=== PATIENT | male | born 1960 | race African-American/Black ===

== ENCOUNTER 2016-12-31 21:40 | Inpatient (IN) | payer MEDICAID ==
[~2016-12-31] VITALS: Ht 188 cm; Wt 99.4 kg
[~2016-12-31 21:40] MED LIST: AML5T PO; ASPI-231 PO; ATOR80TA PO; IPRIH INH; LEVAAER4 IN; LISI-646 PO; MOME200A INH; TERA2CAP45 PO; TRIA37.577 PO
[2016-12-31 22:34] LABS: Basophils # (auto) 0 uL; Basophils % (auto) 0.4 % (0.0-2.0); Eosinophils # (auto) 0.2 uL; Eosinophils % (auto) 3.2 % (0.0-7.0); Hematocrit 42.1 % (41.0-53.0); Hemoglobin 13.2 g/dL (13.5-17.5); Lymphocytes # (auto) 1.3 uL; Lymphocytes % (auto) 22.7 % (10.0-50.0); Mean Corpuscular Hemoglobin 29.4 pg (28.0-32.0); Mean Corpuscular Hgb Conc. 31.5 g/dL (32.0-36.0); Mean Corpuscular Volume 93.5 fL (80.0-100.0); Mean Platelet Volume 11.8 fL (7.4-10.4); Monocytes # (auto) 0.5 uL; Monocytes % (auto) 8.6 % (0.0-12.0); Neutrophils # (auto) 3.7 uL; Neutrophils % (auto) 65.1 % (37.0-80.0); Platelet Count (auto) 138 10^3/uL (140-450); Red Cell Distribution Width 14.6 % (11.6-16.0); White Blood Cell 5.8 10^3/uL (4.4-10.8)
[2016-12-31 22:53] LABS: Partial Thromboplastin Time 26.4 sec (22.64-33.71)
[2016-12-31 23:00] LABS: INR 1.17 (0.9-1.15)
[2016-12-31 23:12] LABS: Albumin 3.3 g/dL (3.4-5.0); Calcium 8.7 mg/dL (8.5-10.1); Magnesium 2.4 mg/dL (1.6-2.6); Potassium 3.8 mmol/L (3.5-5.1)
[2016-12-31 23:14] LABS: Bilirubin, Total 0.7 mg/dL (0.2-1.0); Total Protein 6.7 g/dL (6.4-8.2)
[2016-12-31 23:21] LABS: B-Type Natriuretic Peptide 1286.66 pg/mL (0-100); Temperature: 22.4 C (20.0-25.0)
[2017-01-01] MEDS ORDERED: ENOXAPARIN SOD 100 MG/1 ML SYRINGE SC ONE (01:00)
[2017-01-01] MEDS ORDERED: ATORVASTATIN 20 MG TAB PO ONE (01:00)
[2017-01-01] MEDS ORDERED: FUROSEMIDE 20 MG/2 ML VIAL IV ONE (01:00)
[2017-01-01] MEDS ORDERED: ASPirin 81 mg TAB PO ONE (01:00)
[2017-01-01] MEDS ORDERED: NITROGLYCERIN 0.4 MG SL TAB SL ONE (01:00)
[2017-01-01] MEDS ORDERED: METOPROLOL TARTRATE 50 MG TAB PO ONE (03:45)
[2017-01-01] MEDS ORDERED: IOHEXOL 350 MG/ML 100ML IJ ONE (05:36)
[2017-01-01] MEDS ORDERED: MORPHINE SULF INJ 2 MG/ML SYRINGE 1ML IV PRN (05:45)
[2017-01-01] MEDS ORDERED: ONDANSETRON HCL 4 MG/2 ML VIAL IV PRN (05:45)
[2017-01-01] MEDS ORDERED: NITROGLYCERIN 0.4 MG SL TAB SL PRN (05:45)
[2017-01-01] MEDS ORDERED: ACETAMINOPHEN 325 MG TAB PO PRN (05:45)
[2017-01-01 09:05] VITALS: BP 140/94
[2017-01-01] MEDS: ASPirin 81 mg TAB PO SCH (10:13)
[2017-01-01] MEDS: CLOPIDOGREL BISULFATE 75 MG TAB PO SCH (10:14)
[2017-01-01] MEDS: CARVEDILOL 3.125 MG TAB PO SCH ×2 (10:14→21:30)
[2017-01-01] MEDS: FUROSEMIDE 40 MG TAB PO SCH (10:14)
[2017-01-01] MEDS: ENOXAPARIN SOD 40 MG/0.4 ML SYRINGE SC SCH (10:15)
[2017-01-01] MEDS: FAMOTIDINE 20 MG TAB PO SCH ×2 (10:15→21:30)
[2017-01-01] MEDS: RAMIPRIL 2.5 MG CAP PO SCH (10:19)
[2017-01-01] MEDS: DIGOXIN 0.25 MG TAB PO SCH (10:19)
[2017-01-01 10:30] VITALS: BP 160/101
[2017-01-01 13:00] VITALS: BP 156/111
[2017-01-01] MEDS: HYDROcodone-ACET 5/325MG TAB PO PRN ×3 (13:07→21:30)
[2017-01-01] MEDS ORDERED: PNEUMOCOCCAL VACC POLYS 25 MCG/0.5 ML VIAL IM ONE (16:45)
[2017-01-01] MEDS ORDERED: INFLUENZA QUAD 2016-2017 0.5 ML SYRG IM ONE (16:45)
[2017-01-01 17:02] VITALS: BP 143/103
[2017-01-01 20:00] VITALS: BP 140/99
[2017-01-01] MEDS: ATORVASTATIN 20 MG TAB PO SCH (21:34)
[2017-01-01 22:00] VITALS: BP 140/99
[2017-01-02] VITALS (7 sets, daily range): BP systolic 140–152; BP diastolic 92–106
[2017-01-02] MEDS: HYDROcodone-ACET 5/325MG TAB PO PRN ×3 (04:11→22:43)
[2017-01-02 06:33] LABS: Basophils # (auto) 0 uL; Basophils % (auto) 0.6 % (0.0-2.0); Eosinophils # (auto) 0.2 uL; Hematocrit 40.8 % (41.0-53.0); Hemoglobin 12.7 g/dL (13.5-17.5); Lymphocytes # (auto) 0.9 uL; Lymphocytes % (auto) 16.2 % (10.0-50.0); Mean Corpuscular Hemoglobin 29.2 pg (28.0-32.0); Mean Corpuscular Hgb Conc. 31.2 g/dL (32.0-36.0); Mean Corpuscular Volume 93.6 fL (80.0-100.0); Mean Platelet Volume 13.8 fL (7.4-10.4); Monocytes # (auto) 0.5 uL; Monocytes % (auto) 9.3 % (0.0-12.0); Neutrophils # (auto) 3.8 uL; Neutrophils % (auto) 70.9 % (37.0-80.0); Platelet Count (auto) 122 10^3/uL (140-450); Red Cell Distribution Width 14.5 % (11.6-16.0); SUSPECT VIEW TRANSMISSION; White Blood Cell 5.3 10^3/uL (4.4-10.8)
[2017-01-02 07:50] LABS: Large Platelets FEW; Platelet Estimate Decrea; RBC Morphology Normal
[2017-01-02 09:06] LABS: Albumin 3.1 g/dL (3.4-5.0); BUN/Creatinine Ratio 19.6; Bilirubin, Total 1.1 mg/dL (0.2-1.0); Calcium 8.6 mg/dL (8.5-10.1); Potassium 3.5 mmol/L (3.5-5.1); Total Protein 6.3 g/dL (6.4-8.2)
[2017-01-02] MEDS: CLOPIDOGREL BISULFATE 75 MG TAB PO SCH (09:16)
[2017-01-02] MEDS: FAMOTIDINE 20 MG TAB PO SCH ×2 (09:17→22:42)
[2017-01-02] MEDS: ENOXAPARIN SOD 40 MG/0.4 ML SYRINGE SC SCH (09:17)
[2017-01-02] MEDS: DIGOXIN 0.25 MG TAB PO SCH (09:20)
[2017-01-02] MEDS: RAMIPRIL 2.5 MG CAP PO SCH (09:20)
[2017-01-02] MEDS: ASPirin 81 mg TAB PO SCH (09:21)
[2017-01-02] MEDS: CARVEDILOL 3.125 MG TAB PO SCH ×2 (09:21→22:56)
[2017-01-02] MEDS: FUROSEMIDE 40 MG TAB PO SCH (09:21)
[2017-01-02] MEDS ORDERED: POTASSIUM CHL 20 Meq TABLET PO SCH (10:00)
[2017-01-02] MEDS: FUROSEMIDE 40 MG/4 ML VIAL IV SCH (17:43)
[2017-01-02] MEDS ORDERED: CARVEDILOL 3.125 MG TAB PO SCH (22:00)
[2017-01-02] MEDS: POTASSIUM CHL 20 Meq TABLET PO SCH (22:42)
[2017-01-02] MEDS: ATORVASTATIN 20 MG TAB PO SCH (22:42)
[2017-01-03 05:25] VITALS: BP 133/95
[2017-01-03] MEDS: FUROSEMIDE 40 MG/4 ML VIAL IV SCH ×2 (05:35→09:31)
[2017-01-03] MEDS: HYDROcodone-ACET 5/325MG TAB PO PRN (05:36)
[2017-01-03 08:00] VITALS: BP 135/100
[2017-01-03 08:08] LABS: BUN/Creatinine Ratio 13.8; Calcium 8.7 mg/dL (8.5-10.1); Potassium 3.5 mmol/L (3.5-5.1)
[2017-01-03 09:00] VITALS: BP 135/100
[2017-01-03] MEDS: POTASSIUM CHL 20 Meq TABLET PO SCH (09:31)
[2017-01-03] MEDS: CLOPIDOGREL BISULFATE 75 MG TAB PO SCH (09:31)
[2017-01-03] MEDS: CARVEDILOL 3.125 MG TAB PO SCH (09:32)
[2017-01-03] MEDS: DIGOXIN 0.25 MG TAB PO SCH (09:32)
[2017-01-03] MEDS: ASPirin 81 mg TAB PO SCH (09:32)
[2017-01-03 09:50] LABS: B-Type Natriuretic Peptide 860.91 pg/mL (0-100); Temperature: 22.4 C (20.0-25.0)
[2017-01-03] MEDS ORDERED: RAMIPRIL 2.5 MG CAP PO SCH (10:00)
[2017-01-03] MEDS: FAMOTIDINE 20 MG TAB PO SCH (10:08)
[2017-01-03 13:00] VITALS: BP 125/95
[2017-01-03 15:09] VITALS: BP 125/95
[2017-01-03 16:00] VITALS: BP 138/104
== END 2017-01-03 17:05 | disposition home or self-care (01) | DRG 190 ==
LOC: ER 21:43 → TELE 21:44 → TELE-WESTW 01-01 08:44 → TELE-E-ADS 01-01 10:07 → TELE-WESTW 01-01 10:33
PROVIDERS: ADMIT Nurse Practitioner; ATTEND Internal Medicine Pulmonary Disease
DX: I21.4 Non-ST elevation (NSTEMI) myocardial infarction (principal); I50.43 Acute on chronic combined systolic (congestive) and diastolic (congestive) heart failure; I11.0 Hypertensive heart disease with heart failure; I42.0 Dilated cardiomyopathy; I42.6 Alcoholic cardiomyopathy; E78.5 Hyperlipidemia, unspecified; E03.9 Hypothyroidism, unspecified; F10.20 Alcohol dependence, uncomplicated; J44.9 Chronic obstructive pulmonary disease, unspecified; Z82.49 Family history of ischemic heart disease and other diseases of the circulatory system; Z82.5 Family history of asthma and other chronic lower respiratory diseases; Z87.891 Personal history of nicotine dependence; Z79.899 Other long term (current) drug therapy; Z79.82 Long term (current) use of aspirin; Z80.1 Family history of malignant neoplasm of trachea, bronchus and lung; Z23 Encounter for immunization
CPT/HCPCS: 36415; 71020; 71275; 80048; 80053; 83735; 83880; 84439; 84443; 84481; 84484; 85025; 85379; 85610; 85730; 87081; 93005; 94761; 96372; 96374

== ENCOUNTER 2017-01-09 07:11 | Inpatient (IN) | payer MEDICAID ==
[~2017-01-09] VITALS: Ht 188 cm; Wt 94.8 kg
[2017-01-09] MEDS ORDERED: ASPirin 81 mg TAB PO ONE (07:45)
[2017-01-09 08:30] LABS: Basophils # (auto) 0 uL; Basophils % (auto) 0.4 % (0.0-2.0); Eosinophils # (auto) 0.1 uL; Hematocrit 40.3 % (41.0-53.0); Hemoglobin 12.9 g/dL (13.5-17.5); Lymphocytes # (auto) 1.3 uL; Lymphocytes % (auto) 25.1 % (10.0-50.0); Mean Corpuscular Hemoglobin 29.9 pg (28.0-32.0); Mean Corpuscular Volume 93.3 fL (80.0-100.0); Mean Platelet Volume 12.3 fL (7.4-10.4); Monocytes # (auto) 0.4 uL; Monocytes % (auto) 8.7 % (0.0-12.0); Neutrophils # (auto) 3.2 uL; Neutrophils % (auto) 63.8 % (37.0-80.0); Platelet Count (auto) 163 10^3/uL (140-450); Red Cell Distribution Width 14.1 % (11.6-16.0); SUSPECT VIEW TRANSMISSION; White Blood Cell 5.1 10^3/uL (4.4-10.8)
[2017-01-09 08:46] LABS: Albumin 3.4 g/dL (3.4-5.0); BUN/Creatinine Ratio 17.1; Calcium 8.5 mg/dL (8.5-10.1); Magnesium 2.4 mg/dL (1.6-2.6); Potassium 3.5 mmol/L (3.5-5.1)
[2017-01-09 08:49] LABS: Bilirubin, Total 0.6 mg/dL (0.2-1.0); Total Protein 6.5 g/dL (6.4-8.2)
[2017-01-09] MEDS ORDERED: ALUM & MAG HYDROX-SIMETH LIQ(MAALOX) 30 ML PO PRN (10:00)
[2017-01-09] MEDS ORDERED: cloNIDine HCL 0.1 MG TAB PO PRN (10:00)
[2017-01-09] MEDS ORDERED: FUROSEMIDE 40 MG/4 ML VIAL IV ONE (10:00)
[2017-01-09] MEDS ORDERED: NITROGLYCERIN 0.4 MG SL TAB SL PRN (10:00)
[2017-01-09] MEDS ORDERED: MORPHINE SULF INJ 2 MG/ML SYRINGE 1ML IV PRN (10:00)
[2017-01-09] MEDS ORDERED: PATIENTS OWN MEDICATION IN SCH ×2 (10:00)
[2017-01-09] MEDS ORDERED: ZOLPIDEM TARTRATE 5 MG TAB PO PRN (10:00)
[2017-01-09] MEDS ORDERED: ACETAMINOPHEN 325 MG TAB PO PRN (10:00)
[2017-01-09] MEDS: amLODIPine BESYLATE 5 MG TAB PO SCH (10:15)
[2017-01-09] MEDS: ENOXAPARIN SOD 100 MG/1 ML SYRINGE SC SCH ×2 (10:15→21:51)
[2017-01-09] MEDS: CLOPIDOGREL BISULFATE 75 MG TAB PO SCH (10:15)
[2017-01-09] MEDS: LISINOPRIL 10 MG TAB PO SCH (10:15)
[2017-01-09] MEDS: BUDESONIDE (INHALATION) 0.5 MG/2 ML NEB NEB SCH ×2 (10:23→19:13)
[2017-01-09] MEDS: ALBUTEROL SULF 2.5 MG/0.5ML(0.5%) NEB SOLN NEB SCH ×3 (10:23→23:52)
[2017-01-09] MEDS: IPRATROPIUM BROM 0.5 MG/2.5ML INH SOL NEB SCH ×3 (10:23→23:52)
[2017-01-09] MEDS: CARVEDILOL 3.125 MG TAB PO SCH ×2 (10:24→21:51)
[2017-01-09] MEDS: DOCUSATE SOD 100 MG CAP PO SCH (10:24)
[2017-01-09] MEDS: HCTZ 25 MG TAB PO SCH (10:25)
[2017-01-09 11:48] LABS: Urine RBC None Seen /hpf (0 - 3)
[2017-01-09 12:25] LABS: Urine Bilirubin Negative (Negative); Urine Blood Negative /uL (Negative); Urine Color Yellow (Yellow); Urine Glucose Normal (Normal); Urine Ketone Negative (Negative); Urine Mucus FEW (None Seen); Urine Nitrite Negative (Negative); Urine Squamous Epithelial Cell FEW /hpf (<5); Urine Urobilinogen Normal (Negative); Urine pH 5.5 (5.0-8.0)
[2017-01-09] MEDS: SODIUM CHLOR 0.9% PF (SALINE LOCK) 10ML VIAL IV SCH ×2 (14:18→22:12)
[2017-01-09 14:23] LABS: B-Type Natriuretic Peptide 1216.57 pg/mL (0-100); Temperature: 23.4 C (20.0-25.0)
[2017-01-09 16:40] VITALS: BP 141/105
[2017-01-09] MEDS: MORPHINE SULF INJ 2 MG/ML SYRINGE 1ML IV PRN ×2 (16:57→19:52)
[2017-01-09] MEDS: ONDANSETRON HCL 4 MG/2 ML VIAL IV PRN ×2 (16:58→18:03)
[2017-01-09] MEDS: LORazepam 0.5 MG TAB PO PRN (16:58)
[2017-01-09] MEDS: NITROGLYCERIN 0.4 MG SL TAB SL PRN ×3 (16:58→20:05)
[2017-01-09] MEDS: FUROSEMIDE 40 MG/4 ML VIAL IV SCH (18:03)
[2017-01-09] MEDS ORDERED: TERAZOSIN HCL 1 MG CAP ONE (21:42)
[2017-01-09] MEDS: ATORVASTATIN 20 MG TAB PO SCH (21:51)
[2017-01-09] MEDS: TERAZOSIN HCL 1 MG CAP PO SCH (21:51)
[2017-01-09 23:35] VITALS: BP 155/82
[2017-01-09 23:50] VITALS: BP 155/82
[2017-01-10 04:00] VITALS: BP 125/77
[2017-01-10] MEDS: FUROSEMIDE 40 MG/4 ML VIAL IV SCH ×2 (05:51→18:16)
[2017-01-10] MEDS: SODIUM CHLOR 0.9% PF (SALINE LOCK) 10ML VIAL IV SCH ×3 (05:51→21:45)
[2017-01-10] MEDS: ALBUTEROL SULF 2.5 MG/0.5ML(0.5%) NEB SOLN NEB SCH ×3 (06:34→18:43)
[2017-01-10] MEDS: IPRATROPIUM BROM 0.5 MG/2.5ML INH SOL NEB SCH ×3 (06:34→18:43)
[2017-01-10] MEDS: BUDESONIDE (INHALATION) 0.5 MG/2 ML NEB NEB SCH ×2 (06:35→18:43)
[2017-01-10 06:40] LABS: Basophils # (auto) 0 uL; Basophils % (auto) 0.6 % (0.0-2.0); Eosinophils # (auto) 0.1 uL; Eosinophils % (auto) 3.6 % (0.0-7.0); Hemoglobin 12.4 g/dL (13.5-17.5); Lymphocytes # (auto) 1.4 uL; Lymphocytes % (auto) 36.1 % (10.0-50.0); Mean Corpuscular Hemoglobin 29.4 pg (28.0-32.0); Mean Corpuscular Hgb Conc. 31.7 g/dL (32.0-36.0); Mean Corpuscular Volume 92.9 fL (80.0-100.0); Mean Platelet Volume 12.1 fL (7.4-10.4); Monocytes # (auto) 0.4 uL; Monocytes % (auto) 10.8 % (0.0-12.0); Neutrophils % (auto) 48.9 % (37.0-80.0); Platelet Count (auto) 141 10^3/uL (140-450); Red Cell Distribution Width 14.3 % (11.6-16.0); SUSPECT VIEW TRANSMISSION
[2017-01-10 07:54] VITALS: BP 136/94
[2017-01-10 07:59] LABS: Albumin 2.9 g/dL (3.4-5.0); BUN/Creatinine Ratio 17.7; Bilirubin, Total 0.8 mg/dL (0.2-1.0); Calcium 8.4 mg/dL (8.5-10.1); Magnesium 2.3 mg/dL (1.6-2.6); Potassium 3.1 mmol/L (3.5-5.1); Total Protein 5.9 g/dL (6.4-8.2)
[2017-01-10] MEDS: DOCUSATE SOD 100 MG CAP PO SCH (09:31)
[2017-01-10] MEDS: ASPirin 81 mg TAB PO SCH (09:54)
[2017-01-10] MEDS: CARVEDILOL 3.125 MG TAB PO SCH ×2 (09:54→21:42)
[2017-01-10] MEDS: CLOPIDOGREL BISULFATE 75 MG TAB PO SCH (09:55)
[2017-01-10] MEDS: amLODIPine BESYLATE 5 MG TAB PO SCH (09:55)
[2017-01-10] MEDS: HCTZ 25 MG TAB PO SCH (09:55)
[2017-01-10] MEDS: ENOXAPARIN SOD 100 MG/1 ML SYRINGE SC SCH (09:56)
[2017-01-10] MEDS: LISINOPRIL 10 MG TAB PO SCH (09:56)
[2017-01-10] MEDS ORDERED: SPIRONOLACTONE 25 MG TAB PO ONE (11:45)
[2017-01-10 11:58] VITALS: BP 127/91
[2017-01-10] MEDS ORDERED: POTASSIUM CHL 10 Meq TABLET PO ONE (12:00)
[2017-01-10] MEDS: BOOST PLUS 8 ounce PO SCH ×2 (12:00→18:16)
[2017-01-10 16:00] VITALS: BP 118/88
[2017-01-10 20:39] VITALS: BP 122/80
[2017-01-10] MEDS: ATORVASTATIN 20 MG TAB PO SCH (21:41)
[2017-01-10] MEDS: LORazepam 0.5 MG TAB PO PRN (21:41)
[2017-01-10] MEDS: TERAZOSIN HCL 1 MG CAP PO SCH (21:41)
[2017-01-11 00:08] VITALS: BP 116/76
[2017-01-11] MEDS: ALBUTEROL SULF 2.5 MG/0.5ML(0.5%) NEB SOLN NEB SCH ×4 (01:09→19:55)
[2017-01-11] MEDS: IPRATROPIUM BROM 0.5 MG/2.5ML INH SOL NEB SCH ×4 (01:09→19:55)
[2017-01-11 04:17] VITALS: BP 111/65
[2017-01-11] MEDS: SODIUM CHLOR 0.9% PF (SALINE LOCK) 10ML VIAL IV SCH ×3 (06:09→21:19)
[2017-01-11] MEDS: FUROSEMIDE 40 MG/4 ML VIAL IV SCH (06:09)
[2017-01-11 06:25] LABS: Basophils # (auto) 0 uL; Basophils % (auto) 0.5 % (0.0-2.0); Eosinophils # (auto) 0.2 uL; Eosinophils % (auto) 3.8 % (0.0-7.0); Hematocrit 41.9 % (41.0-53.0); Hemoglobin 13.5 g/dL (13.5-17.5); Lymphocytes # (auto) 1.2 uL; Lymphocytes % (auto) 27.4 % (10.0-50.0); Mean Corpuscular Hgb Conc. 32.3 g/dL (32.0-36.0); Mean Corpuscular Volume 92.8 fL (80.0-100.0); Mean Platelet Volume 11.8 fL (7.4-10.4); Monocytes # (auto) 0.3 uL; Neutrophils # (auto) 2.7 uL; Neutrophils % (auto) 61.3 % (37.0-80.0); Platelet Count (auto) 160 10^3/uL (140-450); Red Cell Distribution Width 14.3 % (11.6-16.0); White Blood Cell 4.4 10^3/uL (4.4-10.8)
[2017-01-11] MEDS: BUDESONIDE (INHALATION) 0.5 MG/2 ML NEB NEB SCH ×2 (06:57→19:56)
[2017-01-11 07:05] LABS: BUN/Creatinine Ratio 16.8; Calcium 8.2 mg/dL (8.5-10.1)
[2017-01-11 07:23] LABS: Bilirubin, Total 0.8 mg/dL (0.2-1.0)
[2017-01-11 07:39] LABS: Potassium 2.8 mmol/L (3.5-5.1)
[2017-01-11 08:00] VITALS: BP 134/59
[2017-01-11] MEDS: BOOST PLUS 8 ounce PO SCH ×3 (08:00→18:00)
[2017-01-11] MEDS: ASPirin 81 mg TAB PO SCH (09:38)
[2017-01-11] MEDS: CARVEDILOL 3.125 MG TAB PO SCH ×2 (09:38→21:12)
[2017-01-11] MEDS: DOCUSATE SOD 100 MG CAP PO SCH (09:38)
[2017-01-11] MEDS: SPIRONOLACTONE 25 MG TAB PO SCH (09:38)
[2017-01-11] MEDS: HCTZ 25 MG TAB PO SCH (09:38)
[2017-01-11] MEDS: CLOPIDOGREL BISULFATE 75 MG TAB PO SCH (09:39)
[2017-01-11] MEDS: LISINOPRIL 10 MG TAB PO SCH (09:39)
[2017-01-11] MEDS: amLODIPine BESYLATE 5 MG TAB PO SCH (09:39)
[2017-01-11] MEDS ORDERED: POTASSIUM CHL 20 Meq TABLET PO ONE ×2 (11:15→12:30)
[2017-01-11 12:00] VITALS: BP 112/75
[2017-01-11 17:00] VITALS: BP 120/88
[2017-01-11] MEDS: FUROSEMIDE 40 MG TAB PO SCH (18:27)
[2017-01-11] MEDS: ATORVASTATIN 20 MG TAB PO SCH (21:11)
[2017-01-11] MEDS: TERAZOSIN HCL 1 MG CAP PO SCH (21:12)
[2017-01-11] MEDS: POTASSIUM CHL 20 Meq TABLET PO SCH (21:19)
[2017-01-11 21:36] VITALS: BP 127/91
[2017-01-12] MEDS: ALBUTEROL SULF 2.5 MG/0.5ML(0.5%) NEB SOLN NEB SCH ×3 (01:25→11:54)
[2017-01-12] MEDS: IPRATROPIUM BROM 0.5 MG/2.5ML INH SOL NEB SCH ×3 (01:25→11:54)
[2017-01-12 05:19] VITALS: BP 117/84
[2017-01-12] MEDS: SODIUM CHLOR 0.9% PF (SALINE LOCK) 10ML VIAL IV SCH ×2 (05:43→14:00)
[2017-01-12] MEDS: BOOST PLUS 8 ounce PO SCH ×2 (05:43→12:00)
[2017-01-12] MEDS: FUROSEMIDE 40 MG TAB PO SCH (05:43)
[2017-01-12 06:49] LABS: BUN/Creatinine Ratio 19.5; Calcium 8.5 mg/dL (8.5-10.1); Potassium 3.7 mmol/L (3.5-5.1)
[2017-01-12 07:09] LABS: B-Type Natriuretic Peptide 247.2 pg/mL (0-100); Temperature: 22.2 C (20.0-25.0)
[2017-01-12] MEDS: BUDESONIDE (INHALATION) 0.5 MG/2 ML NEB NEB SCH (07:51)
[2017-01-12 08:32] VITALS: BP 118/89
[2017-01-12] MEDS: LISINOPRIL 10 MG TAB PO SCH ×2 (09:46→10:00)
[2017-01-12] MEDS: SPIRONOLACTONE 25 MG TAB PO SCH (09:46)
[2017-01-12] MEDS: DOCUSATE SOD 100 MG CAP PO SCH (09:46)
[2017-01-12] MEDS: CARVEDILOL 3.125 MG TAB PO SCH (09:47)
[2017-01-12] MEDS: POTASSIUM CHL 20 Meq TABLET PO SCH (09:47)
[2017-01-12] MEDS: LORazepam 0.5 MG TAB PO PRN (09:47)
[2017-01-12] MEDS ORDERED: POTA20TA53 PO (09:57)
[2017-01-12] MEDS ORDERED: CAR3125T PO (09:57)
[2017-01-12] MEDS ORDERED: LISI-646 PO (09:57)
[2017-01-12] MEDS ORDERED: SPIR25TA88 PO (09:57)
[2017-01-12] MEDS ORDERED: ASPI-231 PO (09:57)
[2017-01-12] MEDS ORDERED: FURO40TA4 PO (09:57)
[2017-01-12] MEDS ORDERED: ATOR80TA PO (09:57)
[2017-01-12 12:22] VITALS: BP 119/72
[2017-01-12] MEDS: ASPirin 81 mg TAB PO SCH (12:30)
[2017-01-12 14:16] VITALS: BP 119/72
== END 2017-01-12 16:30 | disposition home or self-care (01) | DRG 190 ==
LOC: ER 07:11 → TELE 07:12 → DOU IN ICU 23:34 → TELE-WESTW 01-11 14:52
PROVIDERS: ADMIT Internal Medicine; ATTEND Internal Medicine
DX: I21.4 Non-ST elevation (NSTEMI) myocardial infarction (principal); I50.43 Acute on chronic combined systolic (congestive) and diastolic (congestive) heart failure; E44.0 Moderate protein-calorie malnutrition; I42.0 Dilated cardiomyopathy; I42.6 Alcoholic cardiomyopathy; I13.0 Hypertensive heart and chronic kidney disease with heart failure and stage 1 through stage 4 chronic kidney disease, or unspecified chronic kidney disease; E87.6 Hypokalemia; J44.9 Chronic obstructive pulmonary disease, unspecified; E78.5 Hyperlipidemia, unspecified; I25.119 Atherosclerotic heart disease of native coronary artery with unspecified angina pectoris; D63.8 Anemia in other chronic diseases classified elsewhere; F10.10 Alcohol abuse, uncomplicated; N18.2 Chronic kidney disease, stage 2 (mild); J45.909 Unspecified asthma, uncomplicated; I25.2 Old myocardial infarction; Z87.891 Personal history of nicotine dependence; Z95.5 Presence of coronary angioplasty implant and graft; Z91.19 Patient's noncompliance with other medical treatment and regimen; Z82.49 Family history of ischemic heart disease and other diseases of the circulatory system; Z79.82 Long term (current) use of aspirin; Z79.899 Other long term (current) drug therapy; Z68.26 Body mass index [BMI] 26.0-26.9, adult
CPT/HCPCS: 36415; 71010; 78582; 80048; 80053; 80061; 81001; 83735; 83880; 84132; 84484; 85025; 85379; 87081; 87493; 93005; 93970; 94640; 96374; 97001; 99291; J2405

== ENCOUNTER 2017-01-18 14:05 | Inpatient (IN) | payer MEDICAID ==
[~2017-01-18] VITALS: Ht 188 cm; Wt 108.4 kg
[~2017-01-18 14:05] MED LIST changes: -AML5T PO; +CAR3125T PO; +FURO40TA4 PO; +POTA20TA53 PO; +SPIR25TA88 PO; -TRIA37.577 PO
[2017-01-18] MEDS ORDERED: MORPHINE SULF INJ 2 MG/ML SYRINGE 1ML IV ONE (15:00)
[2017-01-18] MEDS ORDERED: ASPirin 81 mg TAB PO ONE (15:00)
[2017-01-18] MEDS ORDERED: ONDANSETRON HCL 4 MG/2 ML VIAL IV ONE (15:00)
[2017-01-18 15:39] LABS: Albumin 3.5 g/dL (3.4-5.0); BUN/Creatinine Ratio 17.1; Calcium 8.3 mg/dL (8.5-10.1); Magnesium 2.5 mg/dL (1.6-2.6)
[2017-01-18] MEDS ORDERED: MORPHINE SULF INJ 2 MG/ML SYRINGE 1ML IV PRN (15:45)
[2017-01-18] MEDS ORDERED: ACETAMINOPHEN 500 MG TAB PO PRN (15:45)
[2017-01-18] MEDS ORDERED: NITROGLYCERIN 0.4 MG SL TAB SL PRN (15:45)
[2017-01-18] MEDS ORDERED: PROMETHAZINE HCL 25 MG/ML 1ML IV PRN (15:45)
[2017-01-18 15:47] LABS: Basophils # (auto) 0 uL; Basophils % (auto) 0.5 % (0.0-2.0); Eosinophils # (auto) 0.1 uL; Hematocrit 41.1 % (41.0-53.0); Hemoglobin 13.9 g/dL (13.5-17.5); Lymphocytes # (auto) 1.7 uL; Lymphocytes % (auto) 26.4 % (10.0-50.0); Mean Corpuscular Hgb Conc. 33.8 g/dL (32.0-36.0); Mean Corpuscular Volume 91.9 fL (80.0-100.0); Mean Platelet Volume 12.5 fL (7.4-10.4); Monocytes # (auto) 0.6 uL; Monocytes % (auto) 8.8 % (0.0-12.0); Neutrophils # (auto) 4.1 uL; Neutrophils % (auto) 63.3 % (37.0-80.0); Platelet Count (auto) 201 10^3/uL (140-450); Red Cell Distribution Width 14.3 % (11.6-16.0); SUSPECT VIEW TRANSMISSION; White Blood Cell 6.4 10^3/uL (4.4-10.8)
[2017-01-18 15:49] LABS: Partial Thromboplastin Time 25.4 sec (22.64-33.71); Prothrombin Time 11.9 sec (9.37-12.3)
[2017-01-18 15:53] LABS: INR 1.16 (0.9-1.15)
[2017-01-18] MEDS ORDERED: POTASSIUM CHL 20 Meq TABLET PO ONE (16:00)
[2017-01-18] MEDS ORDERED: ENALAPRIL MALEATE 2.5 MG TAB PO ONE (16:00)
[2017-01-18] MEDS ORDERED: CARVEDILOL 3.125 MG TAB PO ONE (16:00)
[2017-01-18] MEDS ORDERED: FUROSEMIDE 40 MG/4 ML VIAL IV ONE (16:00)
[2017-01-18 16:02] LABS: Bilirubin, Total 0.8 mg/dL (0.2-1.0)
[2017-01-18] MEDS: ENOXAPARIN SOD 40 MG/0.4 ML SYRINGE SC SCH (16:30)
[2017-01-18 16:32] LABS: B-Type Natriuretic Peptide 829.11 pg/mL (0-100); Temperature: 22.7 C (20.0-25.0)
[2017-01-18] MEDS ORDERED: SPIRONOLACTONE 25 MG TAB PO ONE (17:00)
[2017-01-18] MEDS ORDERED: DIGOXIN (250MCG/ML) 2 ML AMPULE IV ONE (17:15)
[2017-01-18] MEDS: NITROGLYCERIN 0.2MG/HR TOPICAL PATCH TD SCH (18:23)
[2017-01-18 18:57] LABS: Large Platelets FEW; Platelet Estimate Adequate; RBC Morphology Normal
[2017-01-18] MEDS ORDERED: CARVEDILOL 3.125 MG TAB PO SCH (22:00)
[2017-01-18] MEDS: SODIUM CHLOR 0.9% PF (SALINE LOCK) 10ML VIAL IV SCH (22:08)
[2017-01-18] MEDS: ENALAPRIL MALEATE 10 MG TAB PO SCH (22:11)
[2017-01-18] MEDS: ATORVASTATIN 20 MG TAB PO SCH (22:12)
[2017-01-18] MEDS: LORazepam 0.5 MG TAB PO PRN (23:30)
[2017-01-18] MEDS: TEMAZEPAM 15 MG CAP PO PRN (23:30)
[2017-01-18 23:32] VITALS: BP 122/83
[2017-01-19 00:26] VITALS: BP 122/83
[2017-01-19] MEDS: SPIRONOLACTONE 25 MG TAB PO SCH ×2 (05:03→17:29)
[2017-01-19] MEDS: SODIUM CHLOR 0.9% PF (SALINE LOCK) 10ML VIAL IV SCH ×3 (05:03→22:20)
[2017-01-19 08:00] VITALS: BP 118/80
[2017-01-19 08:46] LABS: B-Type Natriuretic Peptide 804.99 pg/mL (0-100); Temperature: 21.6 C (20.0-25.0)
[2017-01-19] MEDS ORDERED: FUROSEMIDE 40 MG/4 ML VIAL IV SCH (10:00)
[2017-01-19] MEDS ORDERED: ENALAPRIL MALEATE 2.5 MG TAB PO SCH (10:00)
[2017-01-19] MEDS: ASPirin 81 mg TAB PO SCH (10:28)
[2017-01-19] MEDS: ENOXAPARIN SOD 40 MG/0.4 ML SYRINGE SC SCH (10:29)
[2017-01-19] MEDS: ENALAPRIL MALEATE 10 MG TAB PO SCH ×2 (10:29→22:20)
[2017-01-19] MEDS: NITROGLYCERIN 0.2MG/HR TOPICAL PATCH TD SCH (10:30)
[2017-01-19] MEDS: POTASSIUM CHL 20 Meq TABLET PO SCH (10:30)
[2017-01-19] MEDS ORDERED: DIGOXIN 0.25 MG TAB PO ONE (11:45)
[2017-01-19 12:40] LABS: Albumin 3.2 g/dL (3.4-5.0); BUN/Creatinine Ratio 15.6; Bilirubin, Total 0.9 mg/dL (0.2-1.0); Calcium 8.6 mg/dL (8.5-10.1); Total Protein 6.6 g/dL (6.4-8.2)
[2017-01-19 12:51] VITALS: BP 128/85
[2017-01-19 13:01] LABS: Partial Thromboplastin Time 26.8 sec (22.64-33.71)
[2017-01-19 13:06] LABS: INR 1.17 (0.9-1.15)
[2017-01-19 16:00] VITALS: BP 135/93
[2017-01-19] MEDS ORDERED: WARFARIN SODIUM 2.5 MG TAB PO ONE (17:00)
[2017-01-19 21:51] VITALS: BP 137/93
[2017-01-19] MEDS: ATORVASTATIN 20 MG TAB PO SCH (22:20)
[2017-01-19] MEDS: TEMAZEPAM 15 MG CAP PO PRN (22:20)
[2017-01-20 04:37] VITALS: BP 139/85
[2017-01-20] MEDS: SPIRONOLACTONE 25 MG TAB PO SCH ×2 (05:51→09:57)
[2017-01-20] MEDS: SODIUM CHLOR 0.9% PF (SALINE LOCK) 10ML VIAL IV SCH ×3 (06:00→21:20)
[2017-01-20 06:09] LABS: Partial Thromboplastin Time 26.7 sec (22.64-33.71); Prothrombin Time 12.1 sec (9.37-12.3)
[2017-01-20 06:16] LABS: Potassium 3.7 mmol/L (3.5-5.1)
[2017-01-20 06:20] LABS: INR 1.17 (0.9-1.15)
[2017-01-20 06:27] LABS: BUN/Creatinine Ratio 15.2; Bilirubin, Total 0.7 mg/dL (0.2-1.0); Calcium 8.2 mg/dL (8.5-10.1); Total Protein 6.1 g/dL (6.4-8.2)
[2017-01-20 09:29] VITALS: BP 147/97
[2017-01-20] MEDS: HYDROcodone-ACET 5/325MG TAB PO PRN ×2 (09:42→21:08)
[2017-01-20] MEDS: POTASSIUM CHL 20 Meq TABLET PO SCH (09:42)
[2017-01-20] MEDS: NITROGLYCERIN 0.2MG/HR TOPICAL PATCH TD SCH (09:43)
[2017-01-20] MEDS: ASPirin 81 mg TAB PO SCH (09:43)
[2017-01-20] MEDS: ENOXAPARIN SOD 40 MG/0.4 ML SYRINGE SC SCH (09:44)
[2017-01-20] MEDS: ENALAPRIL MALEATE 10 MG TAB PO SCH ×2 (09:44→21:11)
[2017-01-20] MEDS: CARVEDILOL 3.125 MG TAB PO SCH ×2 (09:57→21:10)
[2017-01-20] MEDS ORDERED: DIGOXIN 0.25 MG TAB PO SCH (10:00)
[2017-01-20] MEDS ORDERED: FUROSEMIDE 20 MG TAB PO SCH (10:00)
[2017-01-20 13:00] VITALS: BP 145/71
[2017-01-20 16:57] VITALS: BP 124/89
[2017-01-20] MEDS ORDERED: WARFARIN SODIUM 10 MG TAB PO ONE (17:00)
[2017-01-20] MEDS: ATORVASTATIN 20 MG TAB PO SCH (21:07)
[2017-01-20] MEDS: TEMAZEPAM 15 MG CAP PO PRN (21:11)
[2017-01-20 22:00] VITALS: BP 141/89
[2017-01-21] VITALS (7 sets, daily range): BP systolic 137–155; BP diastolic 82–98
[2017-01-21 06:20] LABS: Partial Thromboplastin Time 27.3 sec (22.64-33.71)
[2017-01-21] MEDS: SODIUM CHLOR 0.9% PF (SALINE LOCK) 10ML VIAL IV SCH ×3 (06:25→21:33)
[2017-01-21 06:26] LABS: BUN/Creatinine Ratio 16.4; Calcium 8.3 mg/dL (8.5-10.1); Potassium 3.9 mmol/L (3.5-5.1)
[2017-01-21 06:33] LABS: INR 1.32 (0.9-1.15); Prothrombin Time 13.6 sec (9.37-12.3)
[2017-01-21] MEDS ORDERED: DIGO0.2566 PO (06:51)
[2017-01-21] MEDS: DIGOXIN 0.25 MG TAB PO SCH (11:18)
[2017-01-21] MEDS: CARVEDILOL 3.125 MG TAB PO SCH ×2 (11:19→21:32)
[2017-01-21] MEDS: ASPirin 81 mg TAB PO SCH (11:20)
[2017-01-21] MEDS: ENALAPRIL MALEATE 10 MG TAB PO SCH ×2 (11:20→21:33)
[2017-01-21] MEDS: SPIRONOLACTONE 25 MG TAB PO SCH (11:20)
[2017-01-21] MEDS: ENOXAPARIN SOD 40 MG/0.4 ML SYRINGE SC SCH (11:21)
[2017-01-21] MEDS ORDERED: ALBUTEROL SULF 2.5 MG/0.5ML(0.5%) NEB SOLN NEB PRN (16:00)
[2017-01-21] MEDS ORDERED: IPRATROPIUM BROM 0.5 MG/2.5ML INH SOL NEB ONE (16:00)
[2017-01-21] MEDS ORDERED: ALBUTEROL SULF 2.5 MG/0.5ML(0.5%) NEB SOLN NEB ONE (16:00)
[2017-01-21] MEDS ORDERED: IPRATROPIUM BROM 0.5 MG/2.5ML INH SOL NEB PRN (16:00)
[2017-01-21] MEDS ORDERED: WARFARIN SODIUM 2.5 MG TAB PO ONE (17:00)
[2017-01-21] MEDS: LORazepam 0.5 MG TAB PO PRN (17:30)
[2017-01-21] MEDS: ATORVASTATIN 20 MG TAB PO SCH (21:32)
[2017-01-21] MEDS: MORPHINE SULF INJ 2 MG/ML SYRINGE 1ML IV PRN (21:34)
[2017-01-21] MEDS: TEMAZEPAM 15 MG CAP PO PRN (23:02)
[2017-01-22 01:52] VITALS: BP 149/112
[2017-01-22 06:25] LABS: Partial Thromboplastin Time 29.6 sec (22.64-33.71)
[2017-01-22 06:27] LABS: INR 2.21 (0.9-1.15); Prothrombin Time 22.8 sec (9.37-12.3)
[2017-01-22 06:36] LABS: BUN/Creatinine Ratio 18.9; Calcium 8.8 mg/dL (8.5-10.1); Potassium 4.2 mmol/L (3.5-5.1)
[2017-01-22] MEDS: MORPHINE SULF INJ 2 MG/ML SYRINGE 1ML IV PRN (06:51)
[2017-01-22] MEDS: SODIUM CHLOR 0.9% PF (SALINE LOCK) 10ML VIAL IV SCH ×3 (06:51→21:37)
[2017-01-22 08:06] VITALS: BP 140/93
[2017-01-22] MEDS ORDERED: FUROSEMIDE 40 MG TAB PO SCH (10:00)
[2017-01-22] MEDS: ASPirin 81 mg TAB PO SCH (10:34)
[2017-01-22] MEDS: SPIRONOLACTONE 25 MG TAB PO SCH (10:34)
[2017-01-22] MEDS: ENALAPRIL MALEATE 10 MG TAB PO SCH ×2 (10:35→21:35)
[2017-01-22] MEDS: CARVEDILOL 3.125 MG TAB PO SCH ×2 (10:35→21:36)
[2017-01-22] MEDS: DIGOXIN 0.25 MG TAB PO SCH (10:37)
[2017-01-22 10:59] LABS: B-Type Natriuretic Peptide 810.35 pg/mL (0-100); Temperature: 21.5 C (20.0-25.0)
[2017-01-22] MEDS ORDERED: METOLAZONE 5 MG TAB PO ONE (11:30)
[2017-01-22] MEDS ORDERED: POTASSIUM CHL 20 Meq TABLET PO ONE (11:30)
[2017-01-22 12:51] VITALS: BP 156/98
[2017-01-22] MEDS ORDERED: WARFARIN SODIUM 1 MG TAB PO ONE (17:00)
[2017-01-22 17:54] VITALS: BP 149/100
[2017-01-22 21:31] VITALS: BP 151/83
[2017-01-22] MEDS: ATORVASTATIN 20 MG TAB PO SCH (21:34)
[2017-01-22] MEDS: TEMAZEPAM 15 MG CAP PO PRN (21:44)
[2017-01-23 05:09] VITALS: BP 154/98
[2017-01-23 05:54] LABS: Partial Thromboplastin Time 29.9 sec (22.64-33.71)
[2017-01-23 05:59] LABS: INR 2.5 (0.9-1.15); Prothrombin Time 25.7 sec (9.37-12.3)
[2017-01-23 06:12] LABS: BUN/Creatinine Ratio 18.2; Calcium 8.8 mg/dL (8.5-10.1); Potassium 3.7 mmol/L (3.5-5.1)
[2017-01-23] MEDS: SODIUM CHLOR 0.9% PF (SALINE LOCK) 10ML VIAL IV SCH ×2 (06:31→14:00)
[2017-01-23 08:00] VITALS: BP 145/98
[2017-01-23 08:39] VITALS: BP 145/109
[2017-01-23] MEDS ORDERED: METOLAZONE 5 MG TAB PO SCH (10:00)
[2017-01-23] MEDS ORDERED: WARF1TAB PO (10:10)
[2017-01-23] MEDS ORDERED: POTASSIUM CHL 10 Meq TABLET PO ONE (10:15)
[2017-01-23] MEDS: SPIRONOLACTONE 25 MG TAB PO SCH (10:43)
[2017-01-23] MEDS: CARVEDILOL 3.125 MG TAB PO SCH (10:44)
[2017-01-23] MEDS: DIGOXIN 0.25 MG TAB PO SCH (10:45)
[2017-01-23] MEDS: ASPirin 81 mg TAB PO SCH (10:45)
[2017-01-23 13:00] VITALS: BP 145/98
[2017-01-23] MEDS ORDERED: METO5TAB56 PO (14:03)
[2017-01-23] MEDS ORDERED: WARFARIN SODIUM 1 MG TAB PO ONE (17:00)
[2017-01-23] MEDS ORDERED: ENALAPRIL MALEATE 2.5 MG TAB PO SCH (22:00)
== END 2017-01-23 16:15 | disposition home or self-care (01) | DRG 201 ==
LOC: ER 14:08 → TELE 14:09 → DOU IN ICU 23:13 → TELE-CENTR 01-19 13:26
PROVIDERS: ADMIT Internal Medicine; ATTEND Internal Medicine
DX: I48.91 Unspecified atrial fibrillation (principal); I50.43 Acute on chronic combined systolic (congestive) and diastolic (congestive) heart failure; D68.69 Other thrombophilia; I42.0 Dilated cardiomyopathy; J44.9 Chronic obstructive pulmonary disease, unspecified; I42.6 Alcoholic cardiomyopathy; I11.0 Hypertensive heart disease with heart failure; I48.92 Unspecified atrial flutter; E78.5 Hyperlipidemia, unspecified; I25.2 Old myocardial infarction; Z87.891 Personal history of nicotine dependence; Z82.49 Family history of ischemic heart disease and other diseases of the circulatory system; Z80.1 Family history of malignant neoplasm of trachea, bronchus and lung; Z82.5 Family history of asthma and other chronic lower respiratory diseases
CPT/HCPCS: 36415; 71010; 71020; 80048; 80053; 80162; 82550; 83735; 83880; 84484; 85025; 85610; 85652; 85730; 86141; 87081; 87493; 93005; 94640; 96374; 96375; G0434; J2405

== ENCOUNTER 2017-02-07 16:19 | Inpatient (IN) | payer SELFPAY ==
[~2017-02-07] VITALS: Ht 188 cm; Wt 99.0 kg
[~2017-02-07 16:19] MED LIST changes: +DIGO0.2566 PO; +METO5TAB56 PO; +WARF1TAB PO
[2017-02-07 17:28] LABS: Basophils # (auto) 0 uL; Basophils % (auto) 0.3 % (0.0-2.0); Eosinophils # (auto) 0 uL; Eosinophils % (auto) 0.7 % (0.0-7.0); Hematocrit 42.7 % (41.0-53.0); Hemoglobin 14.2 g/dL (13.5-17.5); Lymphocytes % (auto) 18.6 % (10.0-50.0); Mean Corpuscular Hemoglobin 30.6 pg (28.0-32.0); Mean Corpuscular Hgb Conc. 33.3 g/dL (32.0-36.0); Mean Corpuscular Volume 91.9 fL (80.0-100.0); Mean Platelet Volume 10.6 fL (7.4-10.4); Monocytes # (auto) 0.5 uL; Monocytes % (auto) 8.7 % (0.0-12.0); Neutrophils # (auto) 3.9 uL; Neutrophils % (auto) 71.7 % (37.0-80.0); Platelet Count (auto) 170 10^3/uL (140-450); Red Cell Distribution Width 13.5 % (11.6-16.0); White Blood Cell 5.4 10^3/uL (4.4-10.8)
[2017-02-07 17:44] LABS: Albumin 3.5 g/dL (3.4-5.0); BUN/Creatinine Ratio 12.9; Calcium 8.2 mg/dL (8.5-10.1); Magnesium 2.5 mg/dL (1.6-2.6); Potassium 3.3 mmol/L (3.5-5.1)
[2017-02-07] MEDS ORDERED: SODIUM CHLORIDE 0.9% 1,000 ML IV ONE (17:45)
[2017-02-07 17:49] LABS: B-Type Natriuretic Peptide 77.61 pg/mL (0-100); INR 1.13 (0.9-1.15); Partial Thromboplastin Time 25.2 sec (22.64-33.71); Prothrombin Time 11.6 sec (9.37-12.3)
[2017-02-07 18:00] LABS: Bilirubin, Total 1.3 mg/dL (0.2-1.0); Total Protein 6.8 g/dL (6.4-8.2)
[2017-02-07 18:03] LABS: Temperature: 23.9 C (20.0-25.0)
[2017-02-07] MEDS ORDERED: ASPirin 81 mg TAB PO ONE (18:15)
[2017-02-07] MEDS ORDERED: ONDANSETRON HCL 4 MG/2 ML VIAL IV ONE (18:45)
[2017-02-07] MEDS ORDERED: MORPHINE SULF INJ 2 MG/ML SYRINGE 1ML IV ONE (18:45)
[2017-02-07] MEDS ORDERED: PROMETHAZINE HCL 25 MG/ML 1ML IV PRN (19:15)
[2017-02-07] MEDS ORDERED: ACETAMINOPHEN 500 MG TAB PO PRN (19:15)
[2017-02-07] MEDS ORDERED: MORPHINE SULF INJ 2 MG/ML SYRINGE 1ML IV PRN ×2 (19:15)
[2017-02-07] MEDS ORDERED: LACTULOSE 20Gm/30ML SOLN PO PRN (19:15)
[2017-02-07] MEDS ORDERED: LORazepam 0.5 MG TAB PO PRN (19:15)
[2017-02-07] MEDS ORDERED: TEMAZEPAM 15 MG CAP PO PRN (19:15)
[2017-02-07 21:00] VITALS: BP 110/72
[2017-02-07] MEDS: SODIUM CHLOR 0.9% PF (SALINE LOCK) 10ML VIAL IV SCH (21:29)
[2017-02-07] MEDS: CARVEDILOL 3.125 MG TAB PO SCH (21:30)
[2017-02-07] MEDS: HYDROcodone-ACET 5/325MG TAB PO PRN (21:31)
[2017-02-07] MEDS: ATORVASTATIN 20 MG TAB PO SCH (21:31)
[2017-02-07] MEDS ORDERED: IPRATROPIUM BROMIDE INH SCH (22:00)
[2017-02-07] MEDS ORDERED: FORMOTEROL INH SCH (22:00)
[2017-02-07] MEDS ORDERED: [UNRECOGNIZED DRUG - OTHER] INH SCH (22:00)
[2017-02-07] MEDS: LEVALBUTEROL HCL 1.25 MG/3 ML NEB IN SCH (22:10)
[2017-02-07] MEDS: IPRATROPIUM BROM 0.5 MG/2.5ML INH SOL NEB SCH (22:10)
[2017-02-07] MEDS: BUDESONIDE (INHALATION) 0.5 MG/2 ML NEB NEB SCH (22:10)
[2017-02-07 22:19] VITALS: BP 105/67
[2017-02-08 04:00] VITALS: BP 86/59
[2017-02-08 04:15] VITALS: BP 93/64
[2017-02-08] MEDS: SODIUM CHLOR 0.9% PF (SALINE LOCK) 10ML VIAL IV SCH (05:32)
[2017-02-08] MEDS: IPRATROPIUM BROM 0.5 MG/2.5ML INH SOL NEB SCH ×3 (06:02→22:01)
[2017-02-08] MEDS: BUDESONIDE (INHALATION) 0.5 MG/2 ML NEB NEB SCH ×2 (06:02→22:01)
[2017-02-08] MEDS: LEVALBUTEROL HCL 1.25 MG/3 ML NEB IN SCH ×3 (06:02→22:01)
[2017-02-08 06:28] LABS: Basophils # (auto) 0 uL; Basophils % (auto) 0.4 % (0.0-2.0); Eosinophils # (auto) 0.1 uL; Eosinophils % (auto) 2.1 % (0.0-7.0); Hematocrit 41.1 % (41.0-53.0); Hemoglobin 13.5 g/dL (13.5-17.5); Lymphocytes # (auto) 1.8 uL; Lymphocytes % (auto) 29.8 % (10.0-50.0); Mean Corpuscular Hemoglobin 30.3 pg (28.0-32.0); Mean Corpuscular Hgb Conc. 32.7 g/dL (32.0-36.0); Mean Corpuscular Volume 92.6 fL (80.0-100.0); Monocytes # (auto) 0.6 uL; Monocytes % (auto) 9.7 % (0.0-12.0); Neutrophils # (auto) 3.6 uL; Platelet Count (auto) 147 10^3/uL (140-450); White Blood Cell 6.1 10^3/uL (4.4-10.8)
[2017-02-08 07:11] LABS: Albumin 2.9 g/dL (3.4-5.0); BUN/Creatinine Ratio 19.1; Bilirubin, Total 0.9 mg/dL (0.2-1.0); Calcium 7.8 mg/dL (8.5-10.1); Potassium 3.2 mmol/L (3.5-5.1); Total Protein 6.2 g/dL (6.4-8.2)
[2017-02-08 07:48] VITALS: BP 93/64
[2017-02-08] MEDS: DIGOXIN 0.25 MG TAB PO SCH (09:09)
[2017-02-08] MEDS: ASPirin 81 mg TAB PO SCH (09:09)
[2017-02-08] MEDS: PANTOPRAZOLE 40 MG TAB PO SCH (09:09)
[2017-02-08] MEDS: HYDROcodone-ACET 5/325MG TAB PO PRN ×2 (09:10→15:48)
[2017-02-08] MEDS: CARVEDILOL 3.125 MG TAB PO SCH ×2 (09:13→21:31)
[2017-02-08] MEDS ORDERED: ENOXAPARIN SOD 40 MG/0.4 ML SYRINGE SC SCH (10:00)
[2017-02-08 11:44] VITALS: BP 114/76
[2017-02-08 15:55] VITALS: BP 118/70
[2017-02-08] MEDS: NITROGLYCERIN 0.4 MG SL TAB SL PRN ×2 (17:33→17:41)
[2017-02-08] MEDS ORDERED: POTASSIUM CHL 20 Meq TABLET PO ONE ×2 (18:15→22:00)
[2017-02-08] MEDS: FUROSEMIDE 40 MG TAB PO SCH (18:42)
[2017-02-08 20:00] VITALS: BP 110/65
[2017-02-08] MEDS: ATORVASTATIN 20 MG TAB PO SCH (21:32)
[2017-02-08] MEDS: APIXABAN 2.5 MG TAB PO SCH (21:32)
[2017-02-08] MEDS: POTASSIUM CHL 20 Meq TABLET PO SCH (21:32)
[2017-02-09] VITALS (7 sets, daily range): BP systolic 121–148; BP diastolic 71–96
[2017-02-09] MEDS: FUROSEMIDE 40 MG TAB PO SCH ×2 (05:38→17:35)
[2017-02-09] MEDS: IPRATROPIUM BROM 0.5 MG/2.5ML INH SOL NEB SCH ×3 (06:21→22:00)
[2017-02-09] MEDS: BUDESONIDE (INHALATION) 0.5 MG/2 ML NEB NEB SCH (06:21)
[2017-02-09] MEDS: LEVALBUTEROL HCL 1.25 MG/3 ML NEB IN SCH ×3 (06:21→22:00)
[2017-02-09 06:37] LABS: BUN/Creatinine Ratio 22.5; Calcium 8.4 mg/dL (8.5-10.1); Potassium 3.5 mmol/L (3.5-5.1)
[2017-02-09] MEDS: PANTOPRAZOLE 40 MG TAB PO SCH (10:05)
[2017-02-09] MEDS: APIXABAN 2.5 MG TAB PO SCH ×2 (10:05→21:08)
[2017-02-09] MEDS: POTASSIUM CHL 20 Meq TABLET PO SCH ×2 (10:05→21:08)
[2017-02-09] MEDS: ASPirin 81 mg TAB PO SCH (10:05)
[2017-02-09] MEDS: METOLAZONE 5 MG TAB PO SCH (10:06)
[2017-02-09] MEDS: DIGOXIN 0.25 MG TAB PO SCH (10:08)
[2017-02-09] MEDS: CARVEDILOL 3.125 MG TAB PO SCH (10:09)
[2017-02-09] MEDS: CARVEDILOL 12.5 MG TAB PO SCH (21:07)
[2017-02-09] MEDS: ATORVASTATIN 20 MG TAB PO SCH (21:09)
[2017-02-10] VITALS (7 sets, daily range): BP systolic 128–146; BP diastolic 82–103
[2017-02-10] MEDS: FUROSEMIDE 40 MG TAB PO SCH ×2 (06:00→18:08)
[2017-02-10 07:04] LABS: BUN/Creatinine Ratio 20.7; Calcium 8.8 mg/dL (8.5-10.1)
[2017-02-10 07:18] LABS: B-Type Natriuretic Peptide 566.89 pg/mL (0-100); Temperature: 21.4 C (20.0-25.0)
[2017-02-10] MEDS: LEVALBUTEROL HCL 1.25 MG/3 ML NEB IN SCH ×3 (07:40→21:30)
[2017-02-10] MEDS: IPRATROPIUM BROM 0.5 MG/2.5ML INH SOL NEB SCH ×3 (07:41→21:30)
[2017-02-10] MEDS: ASPirin 81 mg TAB PO SCH (10:02)
[2017-02-10] MEDS: CARVEDILOL 12.5 MG TAB PO SCH ×2 (10:02→22:47)
[2017-02-10] MEDS: POTASSIUM CHL 20 Meq TABLET PO SCH ×3 (10:03→22:48)
[2017-02-10] MEDS: APIXABAN 2.5 MG TAB PO SCH ×2 (10:03→22:46)
[2017-02-10] MEDS: METOLAZONE 5 MG TAB PO SCH (10:04)
[2017-02-10] MEDS: PANTOPRAZOLE 40 MG TAB PO SCH (10:04)
[2017-02-10] MEDS: DIGOXIN 0.25 MG TAB PO SCH (10:04)
[2017-02-10] MEDS: HYDROcodone-ACET 5/325MG TAB PO PRN ×2 (10:12→20:15)
[2017-02-10] MEDS ORDERED: POTASSIUM CHL 20 Meq TABLET PO ONE (11:15)
[2017-02-10] MEDS: ATORVASTATIN 20 MG TAB PO SCH (22:46)
[2017-02-11] VITALS (7 sets, daily range): BP systolic 105–123; BP diastolic 52–82
[2017-02-11] MEDS: IPRATROPIUM BROM 0.5 MG/2.5ML INH SOL NEB SCH ×2 (05:58→13:20)
[2017-02-11] MEDS: LEVALBUTEROL HCL 1.25 MG/3 ML NEB IN SCH ×3 (05:58→18:58)
[2017-02-11] MEDS: POTASSIUM CHL 20 Meq TABLET PO SCH ×2 (06:34→13:44)
[2017-02-11] MEDS: FUROSEMIDE 40 MG TAB PO SCH ×2 (06:34→17:58)
[2017-02-11 06:36] LABS: B-Type Natriuretic Peptide 331.75 pg/mL (0-100)
[2017-02-11] MEDS: APIXABAN 2.5 MG TAB PO SCH (09:20)
[2017-02-11] MEDS: CARVEDILOL 12.5 MG TAB PO SCH (09:20)
[2017-02-11] MEDS: PANTOPRAZOLE 40 MG TAB PO SCH (09:20)
[2017-02-11] MEDS: METOLAZONE 5 MG TAB PO SCH (09:21)
[2017-02-11] MEDS: DIGOXIN 0.25 MG TAB PO SCH (09:21)
[2017-02-11] MEDS ORDERED: POTA20TA53 PO (16:31)
== END 2017-02-11 19:20 | disposition home or self-care (01) | DRG 281 ==
LOC: EDBD 16:19 → ER 16:23 → TELE 16:24 → DOU IN ICU 21:00 → TELE-CENTR 02-10 01:52
PROVIDERS: ADMIT Internal Medicine; ATTEND Internal Medicine Pulmonary Disease
DX: I21.4 Non-ST elevation (NSTEMI) myocardial infarction (principal); I48.4 Atypical atrial flutter; E87.0 Hyperosmolality and hypernatremia; I13.0 Hypertensive heart and chronic kidney disease with heart failure and stage 1 through stage 4 chronic kidney disease, or unspecified chronic kidney disease; J44.9 Chronic obstructive pulmonary disease, unspecified; I50.9 Heart failure, unspecified; I48.91 Unspecified atrial fibrillation; E87.6 Hypokalemia; E78.5 Hyperlipidemia, unspecified; I67.2 Cerebral atherosclerosis; N18.3 Chronic kidney disease, stage 3 (moderate); I25.5 Ischemic cardiomyopathy; Z82.49 Family history of ischemic heart disease and other diseases of the circulatory system; Z87.891 Personal history of nicotine dependence; Z82.5 Family history of asthma and other chronic lower respiratory diseases; I25.2 Old myocardial infarction; Z80.1 Family history of malignant neoplasm of trachea, bronchus and lung
CPT/HCPCS: 36415; 70450; 71010; 80048; 80053; 80061; 80162; 82550; 82962; 83735; 83880; 84132; 84439; 84443; 84484; 85025; 85610; 85652; 85730; 86141; 87081; 93005; 94640; 96361; 96374; 96375; J2405

== ENCOUNTER 2017-03-14 00:42 | Inpatient (IN) | payer MEDICAID ==
[~2017-03-14] VITALS: Ht 188 cm; Wt 122.6 kg
[2017-03-14] VITALS (21 sets, daily range): BP systolic 125–159; BP diastolic 48–106
[2017-03-14 01:11] LABS: Basophils # (auto) 0.2 uL; Basophils % (auto) 3.6 % (0.0-2.0); DEFINITIVE VIEW TRANSMISSION; Eosinophils # (auto) 0.1 uL; Eosinophils % (auto) 1.6 % (0.0-7.0); Hematocrit 39.3 % (41.0-53.0); Hemoglobin 12.9 g/dL (13.5-17.5); Lymphocytes # (auto) 1.3 uL; Lymphocytes % (auto) 18.4 % (10.0-50.0); Mean Corpuscular Hemoglobin 29.9 pg (28.0-32.0); Mean Corpuscular Hgb Conc. 32.7 g/dL (32.0-36.0); Mean Corpuscular Volume 91.6 fL (80.0-100.0); Mean Platelet Volume 10.6 fL (7.4-10.4); Monocytes # (auto) 0.4 uL; Monocytes % (auto) 5.6 % (0.0-12.0); Neutrophils # (auto) 4.8 uL; Neutrophils % (auto) 70.8 % (37.0-80.0); Platelet Count (auto) 133 10^3/uL (140-450); Red Cell Distribution Width 13.7 % (11.6-16.0); White Blood Cell 6.9 10^3/uL (4.4-10.8)
[2017-03-14 01:26] LABS: Partial Thromboplastin Time 27.3 sec (22.64-33.71)
[2017-03-14 01:27] LABS: INR 1.18 (0.9-1.15); Prothrombin Time 12.7 sec (9.37-12.3)
[2017-03-14 01:39] LABS: Temperature: 21.1 C (20.0-25.0)
[2017-03-14 01:47] LABS: Albumin 3.2 g/dL (3.4-5.0); BUN/Creatinine Ratio 9.1; Bilirubin, Total 1.2 mg/dL (0.2-1.0); Calcium 8.2 mg/dL (8.5-10.1); Magnesium 2.1 mg/dL (1.6-2.6); Total Protein 6.9 g/dL (6.4-8.2)
[2017-03-14] MEDS ORDERED: ASPirin 81 mg TAB PO ONE (02:15)
[2017-03-14] MEDS ORDERED: NITROGLYCERIN 0.4 MG SL TAB SL ONE (02:15)
[2017-03-14] MEDS ORDERED: ONDANSETRON HCL 4 MG/2 ML VIAL IV ONE (02:15)
[2017-03-14] MEDS ORDERED: MORPHINE SULFATE 4 MG/ML SYRG IV ONE (02:15)
[2017-03-14] MEDS ORDERED: IOHEXOL 350 MG/ML 100ML IJ ONE (02:42)
[2017-03-14] MEDS ORDERED: ENOXAPARIN SOD 120 MG/0.8 ML SYRINGE SC ONE (05:00)
[2017-03-14] MEDS ORDERED: ATROPINE SULFATE 0.4 MG/1 ML VIAL IV ONE (05:15)
[2017-03-14] MEDS ORDERED: SODIUM CHLORIDE 0.9% 1,000 ML IV SCH (05:43)
[2017-03-14] MEDS ORDERED: HYDROcodone-ACET 5/325MG TAB PO PRN (05:45)
[2017-03-14] MEDS ORDERED: ONDANSETRON HCL 4 MG/2 ML VIAL IV PRN (05:45)
[2017-03-14] MEDS ORDERED: FUROSEMIDE 20 MG/2 ML VIAL IV ONE (05:45)
[2017-03-14] MEDS ORDERED: POTASSIUM CHL 20 Meq TABLET PO ONE (05:45)
[2017-03-14] MEDS ORDERED: NITROGLYCERIN 0.4 MG SL TAB SL PRN (05:45)
[2017-03-14] MEDS ORDERED: ACETAMINOPHEN 325 MG TAB PO PRN (05:45)
[2017-03-14] MEDS ORDERED: MORPHINE SULF INJ 2 MG/ML SYRINGE 1ML IV PRN (05:45)
[2017-03-14] MEDS: FUROSEMIDE 40 MG TAB PO SCH ×2 (06:00→17:35)
[2017-03-14 07:36] LABS: Urine RBC None Seen /hpf (0 - 3)
[2017-03-14 08:01] LABS: Urine Bilirubin Negative (Negative); Urine Blood Negative /uL (Negative); Urine Glucose Normal (Normal); Urine Ketone Negative (Negative); Urine Nitrite Negative (Negative); Urine Squamous Epithelial Cell FEW /hpf (<5); Urine Urobilinogen Normal (Negative)
[2017-03-14 08:02] LABS: Urine Color Straw (Yellow)
[2017-03-14] MEDS ORDERED: SPIRONOLACTONE 25 MG TAB PO SCH (10:00)
[2017-03-14] MEDS ORDERED: ASPirin 81 mg TAB PO SCH ×2 (10:00→18:00)
[2017-03-14] MEDS: CARVEDILOL 3.125 MG TAB PO SCH ×2 (10:19→21:54)
[2017-03-14] MEDS: FAMOTIDINE 20 MG TAB PO SCH ×2 (10:19→21:54)
[2017-03-14] MEDS: DIGOXIN 0.125 MG TAB PO SCH (10:19)
[2017-03-14] MEDS: POTASSIUM CHL 20 Meq TABLET PO SCH ×2 (10:20→21:54)
[2017-03-14] MEDS: LISINOPRIL 10 MG TAB PO SCH (10:20)
[2017-03-14] MEDS ORDERED: METOLAZONE 5 MG TAB PO ONE (11:00)
[2017-03-14] MEDS: MORPHINE SULF INJ 2 MG/ML SYRINGE 1ML IV PRN (12:49)
[2017-03-14] MEDS: ENOXAPARIN SOD 120 MG/0.8 ML SYRINGE SC SCH (17:00)
[2017-03-14] MEDS ORDERED: WARFARIN SODIUM 2.5 MG TAB PO ONE (17:00)
[2017-03-14] MEDS: ASPirin 81 mg TAB PO SCH (17:35)
[2017-03-14] MEDS: SPIRONOLACTONE 25 MG TAB PO SCH (21:54)
[2017-03-14] MEDS: TERAZOSIN HCL 1 MG CAP PO SCH (21:55)
[2017-03-14] MEDS ORDERED: ATORVASTATIN 20 MG TAB PO SCH (22:00)
[2017-03-15 04:00] VITALS: BP 124/75
[2017-03-15 04:53] LABS: Basophils # (auto) 0 uL; Basophils % (auto) 0.4 % (0.0-2.0); Eosinophils # (auto) 0.1 uL; Eosinophils % (auto) 3.3 % (0.0-7.0); Hematocrit 40.1 % (41.0-53.0); Hemoglobin 13.2 g/dL (13.5-17.5); Mean Corpuscular Hemoglobin 30.4 pg (28.0-32.0); Mean Corpuscular Volume 92.1 fL (80.0-100.0); Monocytes # (auto) 0.3 uL; Monocytes % (auto) 7.6 % (0.0-12.0); Neutrophils % (auto) 65.7 % (37.0-80.0); Platelet Count (auto) 134 10^3/uL (140-450); Red Cell Distribution Width 14.9 % (11.6-16.0); SUSPECT VIEW TRANSMISSION; White Blood Cell 4.6 10^3/uL (4.4-10.8)
[2017-03-15 05:05] LABS: BUN/Creatinine Ratio 11.3; Calcium 8.2 mg/dL (8.5-10.1); Potassium 3.5 mmol/L (3.5-5.1)
[2017-03-15 05:07] LABS: Partial Thromboplastin Time 31.9 sec (22.64-33.71)
[2017-03-15 05:17] LABS: INR 1.24 (0.9-1.15); Prothrombin Time 13.4 sec (9.37-12.3)
[2017-03-15 05:20] LABS: Bilirubin, Total 0.9 mg/dL (0.2-1.0); Total Protein 6.5 g/dL (6.4-8.2)
[2017-03-15] MEDS: ENOXAPARIN SOD 120 MG/0.8 ML SYRINGE SC SCH (05:20)
[2017-03-15] MEDS: FUROSEMIDE 40 MG TAB PO SCH ×2 (05:20→18:19)
[2017-03-15 07:51] VITALS: BP 101/59
[2017-03-15] MEDS ORDERED: RIVAROXABAN 10 MG TAB PO SCH (10:00)
[2017-03-15] MEDS: METOLAZONE 5 MG TAB PO SCH (10:05)
[2017-03-15] MEDS: RIVAROXABAN 15 MG TAB PO SCH ×2 (10:06→22:51)
[2017-03-15] MEDS: LISINOPRIL 10 MG TAB PO SCH (10:06)
[2017-03-15] MEDS: FAMOTIDINE 20 MG TAB PO SCH ×2 (10:06→21:43)
[2017-03-15] MEDS: CARVEDILOL 3.125 MG TAB PO SCH ×2 (10:07→21:44)
[2017-03-15] MEDS: DIGOXIN 0.125 MG TAB PO SCH (10:08)
[2017-03-15] MEDS: ASPirin 81 mg TAB PO SCH (10:08)
[2017-03-15] MEDS: SPIRONOLACTONE 25 MG TAB PO SCH ×2 (10:08→21:44)
[2017-03-15] MEDS: POTASSIUM CHL 20 Meq TABLET PO SCH ×2 (10:08→21:44)
[2017-03-15 12:00] VITALS: BP 142/79
[2017-03-15 15:55] VITALS: BP 121/92
[2017-03-15] MEDS: MORPHINE SULF INJ 2 MG/ML SYRINGE 1ML IV PRN ×2 (16:44→21:45)
[2017-03-15] MEDS ORDERED: WARFARIN SODIUM 2.5 MG TAB PO ONE (17:00)
[2017-03-15 21:30] VITALS: BP 142/97
[2017-03-15] MEDS: TERAZOSIN HCL 1 MG CAP PO SCH (21:44)
[2017-03-15 23:00] VITALS: BP 124/68
[2017-03-16 05:00] VITALS: BP 118/74
[2017-03-16] MEDS: FUROSEMIDE 40 MG TAB PO SCH (05:41)
[2017-03-16 06:29] LABS: Partial Thromboplastin Time 36.1 sec (22.64-33.71)
[2017-03-16 06:31] LABS: INR 1.68 (0.9-1.15); Prothrombin Time 18.1 sec (9.37-12.3)
[2017-03-16] MEDS: METOLAZONE 5 MG TAB PO SCH (08:56)
[2017-03-16] MEDS: ASPirin 81 mg TAB PO SCH (08:56)
[2017-03-16] MEDS: LISINOPRIL 10 MG TAB PO SCH (08:57)
[2017-03-16] MEDS: RIVAROXABAN 15 MG TAB PO SCH (08:57)
[2017-03-16] MEDS: DIGOXIN 0.125 MG TAB PO SCH (08:57)
[2017-03-16] MEDS: POTASSIUM CHL 20 Meq TABLET PO SCH (08:57)
[2017-03-16] MEDS: FAMOTIDINE 20 MG TAB PO SCH (08:58)
[2017-03-16] MEDS: SPIRONOLACTONE 25 MG TAB PO SCH (08:58)
[2017-03-16 09:00] VITALS: BP 127/86
[2017-03-16] MEDS: CARVEDILOL 3.125 MG TAB PO SCH (10:00)
[2017-03-16 10:32] VITALS: BP 127/86
[2017-03-16 10:42] VITALS: BP 127/86
== END 2017-03-16 13:11 | disposition home or self-care (01) | DRG 134 ==
LOC: EDBD 00:42 → ER 00:49 → TELE 00:50 → DOU IN ICU 08:35 → ICU WEST 08:52 → DOU IN ICU 17:20 → ICU CENTRL 17:20 → TELE-WESTW 03-15 17:08
PROVIDERS: ADMIT Nurse Practitioner; ATTEND Internal Medicine
DX: I26.99 Other pulmonary embolism without acute cor pulmonale (principal); I50.43 Acute on chronic combined systolic (congestive) and diastolic (congestive) heart failure; D68.59 Other primary thrombophilia; I42.0 Dilated cardiomyopathy; I27.2 Other secondary pulmonary hypertension; K76.89 Other specified diseases of liver; I48.2 Chronic atrial fibrillation; J44.9 Chronic obstructive pulmonary disease, unspecified; I11.0 Hypertensive heart disease with heart failure; F10.10 Alcohol abuse, uncomplicated; M47.9 Spondylosis, unspecified; K42.9 Umbilical hernia without obstruction or gangrene; I70.8 Atherosclerosis of other arteries; I25.10 Atherosclerotic heart disease of native coronary artery without angina pectoris; E66.9 Obesity, unspecified; E78.5 Hyperlipidemia, unspecified; I25.2 Old myocardial infarction; Z80.1 Family history of malignant neoplasm of trachea, bronchus and lung; Z82.5 Family history of asthma and other chronic lower respiratory diseases; Z82.49 Family history of ischemic heart disease and other diseases of the circulatory system; Z87.891 Personal history of nicotine dependence; Z68.34 Body mass index [BMI] 34.0-34.9, adult
CPT/HCPCS: 36415; 71010; 71260; 74177; 80053; 80162; 81001; 83735; 83880; 84132; 84484; 85025; 85610; 85730; 87081; 93005; 93970; 96361; 96372; 96374; 96375; J2405

== ENCOUNTER 2017-04-06 04:48 | Inpatient (IN) | payer SELFPAY ==
[~2017-04-06] VITALS: Ht 177.8 cm; Wt 102.1 kg
[2017-04-06] MEDS ORDERED: MORPHINE SULFATE 4 MG/ML SYRG IV ONE (06:00)
[2017-04-06] MEDS ORDERED: NITROGLYCERIN 0.4 MG SL TAB SL ONE (06:00)
[2017-04-06] MEDS ORDERED: ONDANSETRON HCL 4 MG/2 ML VIAL IV ONE (06:00)
[2017-04-06 06:13] LABS: Basophils # (auto) 0 uL; Basophils % (auto) 0.4 % (0.0-2.0); Eosinophils # (auto) 0.1 uL; Eosinophils % (auto) 2.2 % (0.0-7.0); Hematocrit 40.4 % (41.0-53.0); Hemoglobin 13.3 g/dL (13.5-17.5); Lymphocytes # (auto) 1.2 uL; Lymphocytes % (auto) 18.6 % (10.0-50.0); Mean Corpuscular Hemoglobin 30.3 pg (28.0-32.0); Mean Corpuscular Volume 91.8 fL (80.0-100.0); Mean Platelet Volume 11.1 fL (7.4-10.4); Monocytes # (auto) 0.5 uL; Monocytes % (auto) 7.9 % (0.0-12.0); Neutrophils # (auto) 4.5 uL; Neutrophils % (auto) 70.9 % (37.0-80.0); Platelet Count (auto) 151 10^3/uL (140-450); Red Cell Distribution Width 16.1 % (11.6-16.0); SUSPECT VIEW TRANSMISSION; White Blood Cell 6.3 10^3/uL (4.4-10.8)
[2017-04-06 06:37] LABS: Albumin 3.3 g/dL (3.4-5.0); Bilirubin, Total 0.8 mg/dL (0.2-1.0); Calcium 8.4 mg/dL (8.5-10.1); Potassium 3.1 mmol/L (3.5-5.1); Total Protein 6.9 g/dL (6.4-8.2)
[2017-04-06 06:38] LABS: Temperature: 23.3 C (20.0-25.0)
[2017-04-06] MEDS ORDERED: NITROGLYCERIN 0.2MG/HR TOPICAL PATCH TD ONE (06:45)
[2017-04-06] MEDS ORDERED: ENOXAPARIN SOD 100 MG/1 ML SYRINGE SC ONE (07:00)
[2017-04-06] MEDS ORDERED: ASPirin 81 mg TAB PO ONE (07:00)
[2017-04-06] MEDS ORDERED: cloNIDine HCL 0.1 MG TAB PO ONE (07:15)
[2017-04-06 07:44] LABS: Urine RBC None Seen /hpf (0 - 3)
[2017-04-06 08:00] LABS: Urine Bilirubin Negative (Negative); Urine Blood Negative /uL (Negative); Urine Color Yellow (Yellow); Urine Glucose Normal (Normal); Urine Ketone Negative (Negative); Urine Mucus FEW (None Seen); Urine Nitrite Negative (Negative); Urine Squamous Epithelial Cell FEW /hpf (<5); Urine pH 5.5 (5.0-8.0)
[2017-04-06] MEDS ORDERED: IOHEXOL 350 MG/ML 100ML IJ ONE (08:05)
[2017-04-06] MEDS ORDERED: FUROSEMIDE 40 MG/4 ML VIAL IV ONE (08:15)
[2017-04-06] MEDS ORDERED: PROMETHAZINE HCL 25 MG/ML 1ML IV PRN (09:00)
[2017-04-06] MEDS ORDERED: NITROGLYCERIN 0.4 MG SL TAB SL PRN (09:00)
[2017-04-06] MEDS ORDERED: LORazepam 0.5 MG TAB PO PRN (09:00)
[2017-04-06] MEDS ORDERED: TEMAZEPAM 15 MG CAP PO PRN (09:00)
[2017-04-06] MEDS ORDERED: ACETAMINOPHEN 500 MG TAB PO PRN (09:00)
[2017-04-06 09:36] LABS: INR 1.06 (0.9-1.15); Partial Thromboplastin Time 27.4 sec (22.64-33.71); Prothrombin Time 11.5 sec (9.37-12.3)
[2017-04-06] MEDS: METOLAZONE 5 MG TAB PO SCH (09:48)
[2017-04-06] MEDS: SPIRONOLACTONE 25 MG TAB PO SCH (09:48)
[2017-04-06] MEDS: POTASSIUM CHL 20 Meq TABLET PO SCH ×2 (09:48→22:14)
[2017-04-06] MEDS: DIGOXIN 0.125 MG TAB PO SCH (09:48)
[2017-04-06] MEDS: CARVEDILOL 3.125 MG TAB PO SCH ×2 (09:48→22:13)
[2017-04-06] MEDS: LISINOPRIL 10 MG TAB PO SCH (09:49)
[2017-04-06] MEDS ORDERED: [UNRECOGNIZED DRUG - OTHER] INH SCH (10:00)
[2017-04-06] MEDS ORDERED: LISINOPRIL 20 MG TAB PO SCH (10:00)
[2017-04-06] MEDS ORDERED: DIGOXIN 0.25 MG TAB PO SCH (10:00)
[2017-04-06] MEDS ORDERED: FORMOTEROL INH SCH (10:00)
[2017-04-06] MEDS: ALBUTEROL SULF 2.5 MG/0.5ML(0.5%) NEB SOLN NEB PRN (11:55)
[2017-04-06] MEDS: IPRATROPIUM BROM 0.5 MG/2.5ML INH SOL NEB SCH ×2 (11:55→18:00)
[2017-04-06] MEDS: BUDESONIDE (INHALATION) 0.5 MG/2 ML NEB NEB SCH (11:55)
[2017-04-06] MEDS ORDERED: LEVALBUTEROL TARTRATE IN SCH (12:00)
[2017-04-06] MEDS ORDERED: IPRATROPIUM BROMIDE INH SCH (12:00)
[2017-04-06 16:24] VITALS: BP 114/64
[2017-04-06] MEDS ORDERED: WARFARIN SODIUM 5 MG TAB PO ONE (17:00)
[2017-04-06] MEDS: FUROSEMIDE 40 MG TAB PO SCH (18:27)
[2017-04-06] MEDS: MORPHINE SULF INJ 2 MG/ML SYRINGE 1ML IV PRN (20:16)
[2017-04-06 22:00] VITALS: BP 124/77
[2017-04-06] MEDS ORDERED: PATIENTS OWN MEDICATION (Atorvastatin Calcium (Lipitor) 1 TAB) PO SCH ×2 (22:00)
[2017-04-06] MEDS: TERAZOSIN HCL 1 MG CAP PO SCH (22:00)
[2017-04-06] MEDS ORDERED: TERAZOSIN HCL 4 MG PO SCH (22:00)
[2017-04-06] MEDS: ATORVASTATIN 20 MG TAB PO SCH (22:14)
[2017-04-06 22:40] VITALS: BP 124/77
[2017-04-07] MEDS: IPRATROPIUM BROM 0.5 MG/2.5ML INH SOL NEB SCH ×4 (01:26→18:43)
[2017-04-07] MEDS: BUDESONIDE (INHALATION) 0.5 MG/2 ML NEB NEB SCH ×3 (01:26→18:43)
[2017-04-07] MEDS ORDERED: CHOL20007 PO (02:05)
[2017-04-07 05:00] VITALS: BP 107/73
[2017-04-07] MEDS ORDERED: WARF2.5T39 PO (05:16)
[2017-04-07] MEDS: FUROSEMIDE 40 MG TAB PO SCH ×2 (05:28→18:00)
[2017-04-07] MEDS: ALBUTEROL SULF 2.5 MG/0.5ML(0.5%) NEB SOLN NEB PRN (06:36)
[2017-04-07 07:09] LABS: INR 1.09 (0.9-1.15); Partial Thromboplastin Time 28.7 sec (22.64-33.71); Prothrombin Time 11.8 sec (9.37-12.3)
[2017-04-07 07:29] LABS: Basophils # (auto) 0 uL; Basophils % (auto) 0.7 % (0.0-2.0); Eosinophils # (auto) 0.2 uL; Hematocrit 40.1 % (41.0-53.0); Hemoglobin 13.5 g/dL (13.5-17.5); Lymphocytes # (auto) 1.1 uL; Lymphocytes % (auto) 25.6 % (10.0-50.0); Mean Corpuscular Hemoglobin 30.7 pg (28.0-32.0); Mean Corpuscular Hgb Conc. 33.6 g/dL (32.0-36.0); Mean Corpuscular Volume 91.4 fL (80.0-100.0); Mean Platelet Volume 11.9 fL (7.4-10.4); Monocytes # (auto) 0.4 uL; Monocytes % (auto) 9.9 % (0.0-12.0); Neutrophils # (auto) 2.7 uL; Neutrophils % (auto) 58.8 % (37.0-80.0); Platelet Count (auto) 120 10^3/uL (140-450); Red Cell Distribution Width 14.7 % (11.6-16.0); White Blood Cell 4.4 10^3/uL (4.4-10.8)
[2017-04-07 07:33] LABS: Albumin 3.1 g/dL (3.4-5.0); BUN/Creatinine Ratio 11.7; Calcium 8.3 mg/dL (8.5-10.1); Potassium 3.3 mmol/L (3.5-5.1); Total Protein 6.4 g/dL (6.4-8.2)
[2017-04-07 09:00] VITALS: BP 120/93
[2017-04-07] MEDS: LISINOPRIL 10 MG TAB PO SCH (10:00)
[2017-04-07] MEDS: NITROGLYCERIN 0.2MG/HR TOPICAL PATCH TD SCH (10:00)
[2017-04-07] MEDS: SPIRONOLACTONE 25 MG TAB PO SCH (10:18)
[2017-04-07] MEDS: ASPirin-EC 81 mg tab PO SCH (10:18)
[2017-04-07] MEDS: CARVEDILOL 3.125 MG TAB PO SCH ×2 (10:18→22:35)
[2017-04-07] MEDS: DIGOXIN 0.125 MG TAB PO SCH (10:19)
[2017-04-07] MEDS: POTASSIUM CHL 20 Meq TABLET PO SCH ×2 (10:19→22:37)
[2017-04-07] MEDS: METOLAZONE 5 MG TAB PO SCH (10:20)
[2017-04-07] MEDS: MORPHINE SULF INJ 2 MG/ML SYRINGE 1ML IV PRN (10:20)
[2017-04-07 13:00] VITALS: BP 112/77
[2017-04-07 16:56] VITALS: BP 99/63
[2017-04-07] MEDS ORDERED: WARFARIN SODIUM 5 MG TAB PO ONE (17:00)
[2017-04-07] MEDS ORDERED: POTASSIUM CHL 10 Meq TABLET PO ONE (20:00)
[2017-04-07 22:15] VITALS: BP 124/83
[2017-04-07] MEDS: TERAZOSIN HCL 1 MG CAP PO SCH (22:36)
[2017-04-07] MEDS: ATORVASTATIN 20 MG TAB PO SCH (22:37)
[2017-04-08] MEDS: IPRATROPIUM BROM 0.5 MG/2.5ML INH SOL NEB SCH ×3 (01:15→19:26)
[2017-04-08 05:00] VITALS: BP 111/76
[2017-04-08] MEDS: FUROSEMIDE 40 MG TAB PO SCH ×2 (06:09→17:29)
[2017-04-08 06:12] LABS: Basophils # (auto) 0 uL; Basophils % (auto) 0.3 % (0.0-2.0); Eosinophils # (auto) 0.2 uL; Eosinophils % (auto) 4.6 % (0.0-7.0); Hematocrit 42.3 % (41.0-53.0); Hemoglobin 14.3 g/dL (13.5-17.5); Lymphocytes # (auto) 1.3 uL; Lymphocytes % (auto) 27.7 % (10.0-50.0); Mean Corpuscular Hemoglobin 30.8 pg (28.0-32.0); Mean Corpuscular Hgb Conc. 33.7 g/dL (32.0-36.0); Mean Corpuscular Volume 91.5 fL (80.0-100.0); Mean Platelet Volume 11.5 fL (7.4-10.4); Monocytes # (auto) 0.4 uL; Monocytes % (auto) 9.3 % (0.0-12.0); Neutrophils # (auto) 2.7 uL; Neutrophils % (auto) 58.1 % (37.0-80.0); Platelet Count (auto) 150 10^3/uL (140-450); Red Cell Distribution Width 15.5 % (11.6-16.0); SUSPECT VIEW TRANSMISSION; White Blood Cell 4.7 10^3/uL (4.4-10.8)
[2017-04-08 06:34] LABS: Partial Thromboplastin Time 26.8 sec (22.64-33.71)
[2017-04-08] MEDS: BUDESONIDE (INHALATION) 0.5 MG/2 ML NEB NEB SCH ×2 (06:36→19:26)
[2017-04-08 06:39] LABS: INR 1.18 (0.9-1.15); Prothrombin Time 12.7 sec (9.37-12.3)
[2017-04-08 09:00] VITALS: BP 124/78
[2017-04-08] MEDS: SPIRONOLACTONE 25 MG TAB PO SCH (09:34)
[2017-04-08] MEDS: NITROGLYCERIN 0.2MG/HR TOPICAL PATCH TD SCH (09:34)
[2017-04-08] MEDS: ASPirin-EC 81 mg tab PO SCH (09:34)
[2017-04-08] MEDS: POTASSIUM CHL 20 Meq TABLET PO SCH ×2 (09:35→22:27)
[2017-04-08] MEDS: CARVEDILOL 3.125 MG TAB PO SCH ×2 (09:35→22:24)
[2017-04-08] MEDS: LISINOPRIL 10 MG TAB PO SCH (09:35)
[2017-04-08] MEDS: DIGOXIN 0.125 MG TAB PO SCH (09:35)
[2017-04-08] MEDS: METOLAZONE 5 MG TAB PO SCH (09:36)
[2017-04-08] MEDS: ALBUTEROL SULF 2.5 MG/0.5ML(0.5%) NEB SOLN NEB PRN (12:20)
[2017-04-08 13:00] VITALS: BP 124/85
[2017-04-08 17:00] VITALS: BP 130/88
[2017-04-08] MEDS ORDERED: WARFARIN SODIUM 2.5 MG TAB PO ONE (17:00)
[2017-04-08 20:57] VITALS: BP 114/69
[2017-04-08] MEDS: TERAZOSIN HCL 1 MG CAP PO SCH (22:27)
[2017-04-08] MEDS: ATORVASTATIN 20 MG TAB PO SCH (22:28)
[2017-04-08] MEDS: MORPHINE SULF INJ 2 MG/ML SYRINGE 1ML IV PRN (23:56)
[2017-04-09 05:00] VITALS: BP 123/89
[2017-04-09] MEDS: BUDESONIDE (INHALATION) 0.5 MG/2 ML NEB NEB SCH ×2 (05:54→19:22)
[2017-04-09] MEDS: IPRATROPIUM BROM 0.5 MG/2.5ML INH SOL NEB SCH ×4 (05:54→19:22)
[2017-04-09] MEDS: FUROSEMIDE 40 MG TAB PO SCH ×2 (05:55→18:44)
[2017-04-09] MEDS: ALBUTEROL SULF 2.5 MG/0.5ML(0.5%) NEB SOLN NEB PRN ×2 (05:57→19:22)
[2017-04-09 06:48] LABS: INR 1.3 (0.9-1.15)
[2017-04-09 06:55] VITALS: BP 123/89
[2017-04-09 07:35] VITALS: BP 135/86
[2017-04-09] MEDS: NITROGLYCERIN 0.2MG/HR TOPICAL PATCH TD SCH (11:22)
[2017-04-09] MEDS: POTASSIUM CHL 20 Meq TABLET PO SCH ×2 (11:23→22:12)
[2017-04-09] MEDS: DIGOXIN 0.125 MG TAB PO SCH (11:24)
[2017-04-09] MEDS: ASPirin-EC 81 mg tab PO SCH (11:24)
[2017-04-09] MEDS: CARVEDILOL 3.125 MG TAB PO SCH ×2 (11:25→22:11)
[2017-04-09] MEDS: LISINOPRIL 10 MG TAB PO SCH (11:25)
[2017-04-09] MEDS: SPIRONOLACTONE 25 MG TAB PO SCH (11:25)
[2017-04-09] MEDS: METOLAZONE 5 MG TAB PO SCH (11:27)
[2017-04-09 12:30] VITALS: BP 109/73
[2017-04-09 16:03] VITALS: BP 103/79
[2017-04-09] MEDS ORDERED: WARFARIN SODIUM 2.5 MG TAB PO ONE (17:00)
[2017-04-09] MEDS ORDERED: WARFARIN SODIUM 10 MG TAB PO ONE (17:00)
[2017-04-09] MEDS: ENOXAPARIN SOD 40 MG/0.4 ML SYRINGE SC SCH (18:46)
[2017-04-09 21:45] VITALS: BP 122/72
[2017-04-09] MEDS: ATORVASTATIN 20 MG TAB PO SCH (22:12)
[2017-04-09] MEDS: TERAZOSIN HCL 1 MG CAP PO SCH (22:12)
[2017-04-10] MEDS: ALBUTEROL SULF 2.5 MG/0.5ML(0.5%) NEB SOLN NEB PRN ×3 (00:23→19:03)
[2017-04-10] MEDS: IPRATROPIUM BROM 0.5 MG/2.5ML INH SOL NEB SCH ×4 (00:23→19:03)
[2017-04-10 05:00] VITALS: BP 98/71
[2017-04-10] MEDS: FUROSEMIDE 40 MG TAB PO SCH ×2 (05:54→17:48)
[2017-04-10] MEDS: BUDESONIDE (INHALATION) 0.5 MG/2 ML NEB NEB SCH ×2 (06:07→19:03)
[2017-04-10 06:24] LABS: Partial Thromboplastin Time 27.1 sec (22.64-33.71)
[2017-04-10 06:28] LABS: INR 1.43 (0.9-1.15); Prothrombin Time 15.4 sec (9.37-12.3)
[2017-04-10 07:29] VITALS: BP 98/56
[2017-04-10] MEDS: NITROGLYCERIN 0.2MG/HR TOPICAL PATCH TD SCH (10:00)
[2017-04-10] MEDS: ENOXAPARIN SOD 40 MG/0.4 ML SYRINGE SC SCH (10:11)
[2017-04-10] MEDS: POTASSIUM CHL 20 Meq TABLET PO SCH ×2 (10:26→22:24)
[2017-04-10] MEDS: SPIRONOLACTONE 25 MG TAB PO SCH (10:26)
[2017-04-10] MEDS: ASPirin-EC 81 mg tab PO SCH (10:26)
[2017-04-10] MEDS: CARVEDILOL 3.125 MG TAB PO SCH ×2 (10:27→22:24)
[2017-04-10] MEDS: DIGOXIN 0.125 MG TAB PO SCH (10:27)
[2017-04-10] MEDS: LISINOPRIL 10 MG TAB PO SCH (10:28)
[2017-04-10] MEDS: METOLAZONE 5 MG TAB PO SCH (10:29)
[2017-04-10 11:30] VITALS: BP 105/71
[2017-04-10 16:34] VITALS: BP 97/71
[2017-04-10] MEDS ORDERED: WARFARIN SODIUM 2.5 MG TAB PO ONE (17:00)
[2017-04-10] MEDS: MORPHINE SULF INJ 2 MG/ML SYRINGE 1ML IV PRN (17:48)
[2017-04-10 22:00] VITALS: BP 111/74
[2017-04-10] MEDS: TERAZOSIN HCL 1 MG CAP PO SCH (22:24)
[2017-04-10] MEDS: ATORVASTATIN 20 MG TAB PO SCH (22:24)
[2017-04-10] MEDS: HYDROcodone-ACET 5/325MG TAB PO PRN (22:25)
[2017-04-11] MEDS: ALBUTEROL SULF 2.5 MG/0.5ML(0.5%) NEB SOLN NEB PRN (00:33)
[2017-04-11] MEDS: IPRATROPIUM BROM 0.5 MG/2.5ML INH SOL NEB SCH ×5 (00:33→23:49)
[2017-04-11 05:00] VITALS: BP 92/61
[2017-04-11] MEDS: FUROSEMIDE 40 MG TAB PO SCH ×2 (05:56→17:27)
[2017-04-11 06:16] LABS: Prothrombin Time 18.4 sec (9.37-12.3)
[2017-04-11 06:17] LABS: INR 1.7 (0.9-1.15)
[2017-04-11] MEDS: BUDESONIDE (INHALATION) 0.5 MG/2 ML NEB NEB SCH ×2 (06:55→19:04)
[2017-04-11 08:00] VITALS: BP 92/61
[2017-04-11 09:00] VITALS: BP 113/65
[2017-04-11] MEDS: CARVEDILOL 3.125 MG TAB PO SCH ×2 (10:00→21:39)
[2017-04-11] MEDS: DIGOXIN 0.125 MG TAB PO SCH (10:00)
[2017-04-11] MEDS: METOLAZONE 5 MG TAB PO SCH (10:16)
[2017-04-11] MEDS: SPIRONOLACTONE 25 MG TAB PO SCH (10:18)
[2017-04-11] MEDS: LISINOPRIL 10 MG TAB PO SCH (10:18)
[2017-04-11] MEDS: ASPirin-EC 81 mg tab PO SCH (10:18)
[2017-04-11] MEDS: HYDROcodone-ACET 5/325MG TAB PO PRN ×2 (10:19→21:40)
[2017-04-11] MEDS: POTASSIUM CHL 20 Meq TABLET PO SCH ×3 (10:19→21:39)
[2017-04-11] MEDS: ENOXAPARIN SOD 40 MG/0.4 ML SYRINGE SC SCH (10:20)
[2017-04-11] MEDS: NITROGLYCERIN 0.2MG/HR TOPICAL PATCH TD SCH (10:20)
[2017-04-11 13:00] VITALS: BP 136/73
[2017-04-11 16:48] VITALS: BP 97/58
[2017-04-11] MEDS ORDERED: WARFARIN SODIUM 2.5 MG TAB PO ONE (17:00)
[2017-04-11] MEDS: TERAZOSIN HCL 1 MG CAP PO SCH (21:39)
[2017-04-11] MEDS: ATORVASTATIN 20 MG TAB PO SCH (21:40)
[2017-04-11 22:00] VITALS: BP 120/76
[2017-04-12 05:00] VITALS: BP 105/70
[2017-04-12] MEDS: FUROSEMIDE 40 MG TAB PO SCH (05:41)
[2017-04-12] MEDS: POTASSIUM CHL 20 Meq TABLET PO SCH ×2 (05:41→11:44)
[2017-04-12] MEDS: BUDESONIDE (INHALATION) 0.5 MG/2 ML NEB NEB SCH (06:12)
[2017-04-12] MEDS: IPRATROPIUM BROM 0.5 MG/2.5ML INH SOL NEB SCH ×2 (06:12→12:07)
[2017-04-12 07:09] LABS: BUN/Creatinine Ratio 21.6; Partial Thromboplastin Time 33.4 sec (22.64-33.71); Potassium 3.1 mmol/L (3.5-5.1)
[2017-04-12 07:30] LABS: INR 2.32 (0.9-1.15); Prothrombin Time 25.1 sec (9.37-12.3)
[2017-04-12 08:21] VITALS: BP 99/63
[2017-04-12] MEDS ORDERED: WARF2.5T39 PO (10:44)
[2017-04-12] MEDS ORDERED: SPIR25TA88 PO ×2 (10:44→10:50)
[2017-04-12] MEDS: ASPirin-EC 81 mg tab PO SCH (11:34)
[2017-04-12] MEDS: SPIRONOLACTONE 25 MG TAB PO SCH (11:35)
[2017-04-12] MEDS: ENOXAPARIN SOD 40 MG/0.4 ML SYRINGE SC SCH (11:36)
[2017-04-12 11:58] VITALS: BP 105/67
[2017-04-12 14:06] VITALS: BP 105/70
[2017-04-12 14:20] VITALS: BP 105/70
== END 2017-04-12 15:00 | disposition home or self-care (01) | DRG 313 ==
LOC: EDSEX 04:48 → ER 04:48 → EDBD 04:48 → TELE 04:49 → TELE-CENTR 20:42
PROVIDERS: ADMIT Internal Medicine; ATTEND Internal Medicine Pulmonary Disease
DX: R07.9 Chest pain, unspecified (principal); I50.43 Acute on chronic combined systolic (congestive) and diastolic (congestive) heart failure; I42.0 Dilated cardiomyopathy; I48.92 Unspecified atrial flutter; I13.0 Hypertensive heart and chronic kidney disease with heart failure and stage 1 through stage 4 chronic kidney disease, or unspecified chronic kidney disease; E78.5 Hyperlipidemia, unspecified; F10.20 Alcohol dependence, uncomplicated; E87.6 Hypokalemia; I25.10 Atherosclerotic heart disease of native coronary artery without angina pectoris; I48.91 Unspecified atrial fibrillation; J44.9 Chronic obstructive pulmonary disease, unspecified; Z80.1 Family history of malignant neoplasm of trachea, bronchus and lung; Z82.49 Family history of ischemic heart disease and other diseases of the circulatory system; Z82.5 Family history of asthma and other chronic lower respiratory diseases; Z86.711 Personal history of pulmonary embolism; Z87.891 Personal history of nicotine dependence; Z79.899 Other long term (current) drug therapy; Z91.19 Patient's noncompliance with other medical treatment and regimen; N18.3 Chronic kidney disease, stage 3 (moderate); Z79.82 Long term (current) use of aspirin
CPT/HCPCS: 36415; 71010; 71275; 80048; 80053; 80061; 80307; 81001; 82550; 83880; 84132; 84484; 85025; 85379; 85610; 85652; 85730; 86141; 87081; 93005; 94640; 96372; 96374; 96375; J2405

== ENCOUNTER 2017-06-07 22:56 | Inpatient (IN) | payer MEDICAID ==
[~2017-06-07] VITALS: Ht 188 cm; Wt 99.8 kg
[~2017-06-07 22:56] MED LIST changes: +CHOL20007 PO; -DIGO0.2566 PO; -METO5TAB56 PO; -WARF1TAB PO; +WARF2.5T39 PO
[2017-06-08 07:52] LABS: Basophils # (auto) 0 uL; Basophils % (auto) 0.3 % (0.0-2.0); CONDITION Y; Eosinophils # (auto) 0 uL; Eosinophils % (auto) 0.5 % (0.0-7.0); Hemoglobin 15.5 g/dL (13.5-17.5); Lymphocytes # (auto) 1.6 uL; Lymphocytes % (auto) 27.3 % (10.0-50.0); Mean Corpuscular Hemoglobin 31.7 pg (28.0-32.0); Mean Corpuscular Hgb Conc. 33.7 g/dL (32.0-36.0); Mean Platelet Volume 11.7 fL (7.4-10.4); Monocytes # (auto) 0.4 uL; Monocytes % (auto) 7.4 % (0.0-12.0); Neutrophils # (auto) 3.7 uL; Neutrophils % (auto) 64.5 % (37.0-80.0); Platelet Count (auto) 152 10^3/uL (140-450); Red Cell Distribution Width 16.3 % (11.6-16.0); White Blood Cell 5.8 10^3/uL (4.4-10.8)
[2017-06-08] MEDS ORDERED: ASPirin 81 mg TAB PO ONE (08:00)
[2017-06-08 08:07] LABS: INR 1.15 (0.9-1.15); Partial Thromboplastin Time 27.5 sec (22.64-33.71)
[2017-06-08 08:15] LABS: Prothrombin Time 12.6 sec (9.37-12.3)
[2017-06-08] MEDS ORDERED: LACTULOSE 20Gm/30ML SOLN PO PRN (08:45)
[2017-06-08] MEDS ORDERED: NITROGLYCERIN 0.4 MG SL TAB SL PRN (08:45)
[2017-06-08] MEDS ORDERED: ACETAMINOPHEN 500 MG TAB PO PRN (08:45)
[2017-06-08] MEDS ORDERED: PROMETHAZINE HCL 25 MG/ML 1ML IV PRN (08:45)
[2017-06-08] MEDS ORDERED: MORPHINE SULF INJ 2 MG/ML SYRINGE 1ML IV PRN (08:45)
[2017-06-08] MEDS ORDERED: LORazepam 0.5 MG TAB PO PRN (08:45)
[2017-06-08] MEDS ORDERED: ALBUTEROL SULF 2.5 MG/0.5ML(0.5%) NEB SOLN NEB PRN (08:45)
[2017-06-08] MEDS ORDERED: DEXTROSE (50%) 50ML SYRG IV PRN (08:45)
[2017-06-08] MEDS ORDERED: TEMAZEPAM 15 MG CAP PO PRN (08:45)
[2017-06-08 08:48] LABS: Albumin 3.6 g/dL (3.4-5.0); BUN/Creatinine Ratio 13.7; Bilirubin, Total 1.1 mg/dL (0.2-1.0); Calcium 8.7 mg/dL (8.5-10.1); Total Protein 7.4 g/dL (6.4-8.2)
[2017-06-08 08:51] LABS: Potassium 2.7 mmol/L (3.5-5.1)
[2017-06-08] MEDS: FUROSEMIDE 40 MG TAB PO SCH ×2 (09:28→18:29)
[2017-06-08] MEDS: CARVEDILOL 3.125 MG TAB PO SCH ×2 (09:29→22:00)
[2017-06-08] MEDS: POTASSIUM CHL 20 Meq TABLET PO SCH ×2 (09:30→22:00)
[2017-06-08] MEDS: PANTOPRAZOLE 40 MG TAB PO SCH (09:30)
[2017-06-08] MEDS: CHOLECALCIFEROL (VITD3) 1,000 UNIT TAB PO SCH (09:30)
[2017-06-08] MEDS: LISINOPRIL 20 MG TAB PO SCH (09:30)
[2017-06-08] MEDS: NITROGLYCERIN 0.2MG/HR TOPICAL PATCH TD SCH (09:31)
[2017-06-08] MEDS: ENOXAPARIN SOD 100 MG/1 ML SYRINGE SC SCH ×2 (09:31→22:00)
[2017-06-08 09:43] LABS: B-Type Natriuretic Peptide 117 pg/mL (0-100)
[2017-06-08] MEDS ORDERED: POTASSIUM CHL 20 Meq TABLET PO ONE (09:45)
[2017-06-08] MEDS ORDERED: POTASSIUM CHL 20MEQ/100ML 100 ML IV ONE (09:45)
[2017-06-08] MEDS ORDERED: FORMOTEROL INH SCH (10:00)
[2017-06-08] MEDS ORDERED: [UNRECOGNIZED DRUG - OTHER] INH SCH (10:00)
[2017-06-08] MEDS: SPIRONOLACTONE 25 MG TAB PO SCH (10:00)
[2017-06-08] MEDS ORDERED: SPIRONOLACTONE 25 MG TAB PO SCH (10:00)
[2017-06-08] MEDS ORDERED: PATIENTS OWN MEDICATION (Cholecalciferol (Vitamin D3) 2,000 UNIT) PO SCH ×2 (10:00)
[2017-06-08] MEDS: DIGOXIN 0.125 MG TAB PO SCH (10:28)
[2017-06-08] MEDS: ALBUTEROL SULF 2.5 MG/0.5ML(0.5%) NEB SOLN NEB SCH ×2 (10:53→18:22)
[2017-06-08] MEDS: IPRATROPIUM BROM 0.5 MG/2.5ML INH SOL NEB SCH ×2 (10:53→18:22)
[2017-06-08] MEDS: BUDESONIDE (INHALATION) 0.5 MG/2 ML NEB NEB SCH ×2 (10:53→18:22)
[2017-06-08] MEDS ORDERED: LEVALBUTEROL TARTRATE IN SCH (12:00)
[2017-06-08] MEDS ORDERED: IPRATROPIUM BROMIDE INH SCH (12:00)
[2017-06-08] MEDS: ACCU-CHEK COMFORT CURVE STRIP VI SCH ×3 (12:35→22:00)
[2017-06-08] MEDS: InsuLIN REG 1unit/0.01ml Soln (100units/ml) SC SCH ×3 (12:35→22:00)
[2017-06-08] MEDS: POTASSIUM CHL 20MEQ/100ML 100 ML IV SCH ×2 (12:42→12:44)
[2017-06-08] MEDS ORDERED: WARFARIN SODIUM 5 MG TAB PO ONE (17:00)
[2017-06-08] MEDS ORDERED: TERAZOSIN HCL 4 MG PO SCH (22:00)
[2017-06-08] MEDS: TERAZOSIN HCL 1 MG CAP PO SCH (22:00)
[2017-06-08] MEDS ORDERED: PATIENTS OWN MEDICATION (Atorvastatin Calcium (Lipitor) 1 TAB) PO SCH ×2 (22:00)
[2017-06-08] MEDS: ATORVASTATIN 20 MG TAB PO SCH (22:00)
[2017-06-09] MEDS: ALBUTEROL SULF 2.5 MG/0.5ML(0.5%) NEB SOLN NEB SCH ×4 (00:23→18:00)
[2017-06-09] MEDS: IPRATROPIUM BROM 0.5 MG/2.5ML INH SOL NEB SCH ×4 (00:23→18:00)
[2017-06-09 01:47] VITALS: BP 133/81
[2017-06-09 04:18] LABS: Cholesterol 186 mg/dL (< 200); HDL Cholesterol 35 mg/dL (40-59); LDL Cholesterol 136 mg/dL (< 100); Triglycerides 81 mg/dL (< 150)
[2017-06-09 04:23] LABS: INR 1.17 (0.9-1.15); Partial Thromboplastin Time 35.7 sec (22.64-33.71)
[2017-06-09 04:27] LABS: Prothrombin Time 12.8 sec (9.37-12.3)
[2017-06-09 05:47] LABS: Basophils # (auto) 0 uL; Basophils % (auto) 0.6 % (0.0-2.0); CONDITION Y; Eosinophils # (auto) 0.1 uL; Eosinophils % (auto) 1.4 % (0.0-7.0); Hematocrit 41.7 % (41.0-53.0); Hemoglobin 14.1 g/dL (13.5-17.5); Lymphocytes % (auto) 47.5 % (10.0-50.0); Mean Corpuscular Hemoglobin 31.4 pg (28.0-32.0); Mean Corpuscular Hgb Conc. 33.8 g/dL (32.0-36.0); Mean Corpuscular Volume 92.8 fL (80.0-100.0); Mean Platelet Volume 11.2 fL (7.4-10.4); Monocytes # (auto) 0.3 uL; Monocytes % (auto) 7.2 % (0.0-12.0); Neutrophils # (auto) 1.8 uL; Neutrophils % (auto) 43.3 % (37.0-80.0); Platelet Count (auto) 128 10^3/uL (140-450); Red Cell Distribution Width 15.7 % (11.6-16.0); SUSPECT SEE PRINTOUT
[2017-06-09] MEDS: InsuLIN REG 1unit/0.01ml Soln (100units/ml) SC SCH ×4 (06:11→22:00)
[2017-06-09] MEDS: ACCU-CHEK COMFORT CURVE STRIP VI SCH ×4 (06:12→22:00)
[2017-06-09] MEDS: FUROSEMIDE 40 MG TAB PO SCH ×2 (06:13→17:51)
[2017-06-09] MEDS: BUDESONIDE (INHALATION) 0.5 MG/2 ML NEB NEB SCH ×2 (06:26→18:25)
[2017-06-09 06:31] LABS: White Blood Cell 4.3 10^3/uL (4.4-10.8)
[2017-06-09 06:35] LABS: Albumin 3.1 g/dL (3.4-5.0); BUN/Creatinine Ratio 15.5; Calcium 8.5 mg/dL (8.5-10.1); Potassium 3.1 mmol/L (3.5-5.1); Total Protein 6.3 g/dL (6.4-8.2)
[2017-06-09] MEDS: CARVEDILOL 3.125 MG TAB PO SCH ×2 (10:00→22:00)
[2017-06-09] MEDS: NITROGLYCERIN 0.2MG/HR TOPICAL PATCH TD SCH (10:00)
[2017-06-09] MEDS: POTASSIUM CHL 20 Meq TABLET PO SCH ×2 (10:22→22:00)
[2017-06-09] MEDS: ASPirin-EC 81 mg tab PO SCH (10:22)
[2017-06-09] MEDS: SPIRONOLACTONE 25 MG TAB PO SCH (10:22)
[2017-06-09] MEDS: DIGOXIN 0.125 MG TAB PO SCH (10:22)
[2017-06-09] MEDS: PANTOPRAZOLE 40 MG TAB PO SCH (10:22)
[2017-06-09] MEDS: CHOLECALCIFEROL (VITD3) 1,000 UNIT TAB PO SCH (10:22)
[2017-06-09] MEDS: LISINOPRIL 20 MG TAB PO SCH (10:23)
[2017-06-09] MEDS: ENOXAPARIN SOD 100 MG/1 ML SYRINGE SC SCH ×2 (12:27→23:36)
[2017-06-09] MEDS ORDERED: WARFARIN SODIUM 2 MG TAB PO ONE (17:00)
[2017-06-09] MEDS: TERAZOSIN HCL 1 MG CAP PO SCH (22:00)
[2017-06-09] MEDS: ATORVASTATIN 20 MG TAB PO SCH (23:35)
[2017-06-10] MEDS: IPRATROPIUM BROM 0.5 MG/2.5ML INH SOL NEB SCH ×4 (00:30→18:58)
[2017-06-10] MEDS: ALBUTEROL SULF 2.5 MG/0.5ML(0.5%) NEB SOLN NEB SCH ×4 (00:30→18:58)
[2017-06-10 05:07] LABS: Basophils # (auto) 0 uL; Basophils % (auto) 0.4 % (0.0-2.0); CONDITION Y; Eosinophils # (auto) 0.1 uL; Eosinophils % (auto) 1.4 % (0.0-7.0); Hematocrit 42.2 % (41.0-53.0); Hemoglobin 14.2 g/dL (13.5-17.5); Lymphocytes # (auto) 1.7 uL; Lymphocytes % (auto) 34.7 % (10.0-50.0); Mean Corpuscular Hemoglobin 31.8 pg (28.0-32.0); Mean Corpuscular Hgb Conc. 33.8 g/dL (32.0-36.0); Mean Corpuscular Volume 94.2 fL (80.0-100.0); Mean Platelet Volume 11.5 fL (7.4-10.4); Monocytes # (auto) 0.4 uL; Monocytes % (auto) 8.6 % (0.0-12.0); Neutrophils # (auto) 2.6 uL; Neutrophils % (auto) 54.9 % (37.0-80.0); Platelet Count (auto) 139 10^3/uL (140-450); Red Cell Distribution Width 15.9 % (11.6-16.0); SUSPECT SEE PRINTOUT; White Blood Cell 4.8 10^3/uL (4.4-10.8)
[2017-06-10 05:21] LABS: INR 1.19 (0.9-1.15); Partial Thromboplastin Time 38.3 sec (22.64-33.71)
[2017-06-10] MEDS: FUROSEMIDE 40 MG TAB PO SCH ×2 (06:10→19:00)
[2017-06-10] MEDS: BUDESONIDE (INHALATION) 0.5 MG/2 ML NEB NEB SCH ×2 (06:20→18:57)
[2017-06-10] MEDS: InsuLIN REG 1unit/0.01ml Soln (100units/ml) SC SCH ×4 (07:00→21:50)
[2017-06-10] MEDS: ACCU-CHEK COMFORT CURVE STRIP VI SCH ×4 (07:25→21:50)
[2017-06-10 10:12] LABS: Albumin 3.2 g/dL (3.4-5.0); BUN/Creatinine Ratio 14.2; Bilirubin, Total 0.9 mg/dL (0.2-1.0); Calcium 8.6 mg/dL (8.5-10.1); Potassium 3.1 mmol/L (3.5-5.1); Total Protein 6.6 g/dL (6.4-8.2)
[2017-06-10] MEDS: SPIRONOLACTONE 25 MG TAB PO SCH (10:19)
[2017-06-10] MEDS: ASPirin-EC 81 mg tab PO SCH (10:19)
[2017-06-10] MEDS: CARVEDILOL 3.125 MG TAB PO SCH ×2 (10:19→21:42)
[2017-06-10] MEDS: PANTOPRAZOLE 40 MG TAB PO SCH (10:20)
[2017-06-10] MEDS: LISINOPRIL 20 MG TAB PO SCH (10:20)
[2017-06-10] MEDS: DIGOXIN 0.125 MG TAB PO SCH (10:20)
[2017-06-10] MEDS: NITROGLYCERIN 0.2MG/HR TOPICAL PATCH TD SCH (10:20)
[2017-06-10] MEDS: CHOLECALCIFEROL (VITD3) 1,000 UNIT TAB PO SCH (10:20)
[2017-06-10] MEDS: POTASSIUM CHL 20 Meq TABLET PO SCH ×2 (10:20→21:41)
[2017-06-10] MEDS: ENOXAPARIN SOD 100 MG/1 ML SYRINGE SC SCH ×2 (10:20→21:43)
[2017-06-10] MEDS ORDERED: POTASSIUM CHL 20 Meq TABLET PO ONE (12:30)
[2017-06-10] MEDS ORDERED: WARFARIN SODIUM 2.5 MG TAB PO ONE (17:00)
[2017-06-10 18:12] VITALS: BP 122/90
[2017-06-10 20:00] VITALS: BP 101/63
[2017-06-10] MEDS: HYDROcodone-ACET 5/325MG TAB PO PRN (21:09)
[2017-06-10] MEDS: ATORVASTATIN 20 MG TAB PO SCH (21:42)
[2017-06-10] MEDS: TERAZOSIN HCL 1 MG CAP PO SCH (21:42)
[2017-06-10 22:00] VITALS: BP 121/79
[2017-06-11] VITALS (7 sets, daily range): BP systolic 120–146; BP diastolic 75–91
[2017-06-11] MEDS: ALBUTEROL SULF 2.5 MG/0.5ML(0.5%) NEB SOLN NEB SCH ×4 (00:19→19:44)
[2017-06-11] MEDS: IPRATROPIUM BROM 0.5 MG/2.5ML INH SOL NEB SCH ×4 (00:19→19:44)
[2017-06-11] MEDS: FUROSEMIDE 40 MG TAB PO SCH ×2 (05:39→18:53)
[2017-06-11] MEDS: ACCU-CHEK COMFORT CURVE STRIP VI SCH ×4 (05:44→22:31)
[2017-06-11] MEDS: InsuLIN REG 1unit/0.01ml Soln (100units/ml) SC SCH ×4 (05:44→22:00)
[2017-06-11 05:54] LABS: INR 1.3 (0.9-1.15); Partial Thromboplastin Time 38.1 sec (22.64-33.71)
[2017-06-11 06:01] LABS: Prothrombin Time 14.2 sec (9.37-12.3)
[2017-06-11] MEDS: BUDESONIDE (INHALATION) 0.5 MG/2 ML NEB NEB SCH ×2 (06:05→19:44)
[2017-06-11] MEDS: MORPHINE SULFATE 4 MG/ML SYRG IV PRN (09:00)
[2017-06-11] MEDS: LISINOPRIL 20 MG TAB PO SCH (10:31)
[2017-06-11] MEDS: ASPirin-EC 81 mg tab PO SCH (10:32)
[2017-06-11] MEDS: DIGOXIN 0.125 MG TAB PO SCH (10:32)
[2017-06-11] MEDS: PANTOPRAZOLE 40 MG TAB PO SCH (10:32)
[2017-06-11] MEDS: SPIRONOLACTONE 25 MG TAB PO SCH (10:32)
[2017-06-11] MEDS: CARVEDILOL 3.125 MG TAB PO SCH ×2 (10:33→22:26)
[2017-06-11] MEDS: CHOLECALCIFEROL (VITD3) 1,000 UNIT TAB PO SCH (10:33)
[2017-06-11] MEDS: NITROGLYCERIN 0.2MG/HR TOPICAL PATCH TD SCH (10:35)
[2017-06-11] MEDS: POTASSIUM CHL 20 Meq TABLET PO SCH ×2 (10:41→22:25)
[2017-06-11] MEDS ORDERED: WARFARIN SODIUM 10 MG TAB PO ONE (17:00)
[2017-06-11] MEDS: ENOXAPARIN SOD 100 MG/1 ML SYRINGE SC SCH (22:00)
[2017-06-11] MEDS: TERAZOSIN HCL 1 MG CAP PO SCH (22:25)
[2017-06-11] MEDS: ATORVASTATIN 20 MG TAB PO SCH (22:26)
[2017-06-12] VITALS (7 sets, daily range): BP systolic 123–128; BP diastolic 81–106
[2017-06-12] MEDS: IPRATROPIUM BROM 0.5 MG/2.5ML INH SOL NEB SCH ×4 (00:42→18:19)
[2017-06-12] MEDS: ALBUTEROL SULF 2.5 MG/0.5ML(0.5%) NEB SOLN NEB SCH ×4 (00:42→18:18)
[2017-06-12] MEDS: FUROSEMIDE 40 MG TAB PO SCH ×2 (05:34→18:00)
[2017-06-12] MEDS: InsuLIN REG 1unit/0.01ml Soln (100units/ml) SC SCH ×4 (05:42→22:00)
[2017-06-12] MEDS: ACCU-CHEK COMFORT CURVE STRIP VI SCH ×4 (05:42→22:36)
[2017-06-12 07:03] LABS: INR 1.31 (0.9-1.15); Partial Thromboplastin Time 30.4 sec (22.64-33.71)
[2017-06-12 07:15] LABS: Prothrombin Time 14.3 sec (9.37-12.3)
[2017-06-12] MEDS: CARVEDILOL 3.125 MG TAB PO SCH ×2 (10:00→22:28)
[2017-06-12] MEDS: ENOXAPARIN SOD 100 MG/1 ML SYRINGE SC SCH ×2 (10:00→22:00)
[2017-06-12] MEDS: NITROGLYCERIN 0.2MG/HR TOPICAL PATCH TD SCH (10:00)
[2017-06-12] MEDS: DIGOXIN 0.125 MG TAB PO SCH (10:00)
[2017-06-12] MEDS: ASPirin-EC 81 mg tab PO SCH (10:04)
[2017-06-12] MEDS: POTASSIUM CHL 20 Meq TABLET PO SCH ×2 (10:04→22:18)
[2017-06-12] MEDS: PANTOPRAZOLE 40 MG TAB PO SCH (10:04)
[2017-06-12] MEDS: CHOLECALCIFEROL (VITD3) 1,000 UNIT TAB PO SCH (10:05)
[2017-06-12] MEDS: LISINOPRIL 20 MG TAB PO SCH (10:05)
[2017-06-12] MEDS: SPIRONOLACTONE 25 MG TAB PO SCH (10:05)
[2017-06-12] MEDS ORDERED: LIDOCAINE 2%HCL (LOCAL ANESTH.) INJ 20ML MDV ONE ×2 (11:33→14:54)
[2017-06-12] MEDS ORDERED: IOHEXOL 350 MG/ML 100ML IJ ONE (11:33)
[2017-06-12] MEDS: BUDESONIDE (INHALATION) 0.5 MG/2 ML NEB NEB SCH ×2 (11:48→18:19)
[2017-06-12] MEDS ORDERED: VANCOMYCIN HCL 1000 MG VL ONE (13:54)
[2017-06-12] MEDS ORDERED: ceFAZolin 1GM/50ML D5W 50 ML IV ONE ×2 (13:54→14:00)
[2017-06-12] MEDS ORDERED: VANCOMYCIN 1GM/250ML D5W 250 ML IV ONE ×2 (13:54→14:00)
[2017-06-12] MEDS ORDERED: VANCOMYCIN HCL 1000 MG VL IR ONE (14:00)
[2017-06-12] MEDS ORDERED: fentaNYL CITRATE 100 MCG/2 ML VL ONE (14:33)
[2017-06-12] MEDS ORDERED: MIDAZOLAM HCL 1MG/1ML-2 ML VIAL ONE (14:34)
[2017-06-12] MEDS ORDERED: LIDOCAINE W/ EPINEPHRINE 2% INJ 20ML VIAL ONE (15:48)
[2017-06-12] MEDS ORDERED: WARFARIN SODIUM 2.5 MG TAB PO ONE (17:00)
[2017-06-12] MEDS: MORPHINE SULFATE 4 MG/ML SYRG IV PRN (19:48)
[2017-06-12] MEDS: ATORVASTATIN 20 MG TAB PO SCH (22:16)
[2017-06-12] MEDS: HYDROcodone-ACET 5/325MG TAB PO PRN (22:18)
[2017-06-12] MEDS: TERAZOSIN HCL 1 MG CAP PO SCH (22:29)
[2017-06-13] MEDS: ALBUTEROL SULF 2.5 MG/0.5ML(0.5%) NEB SOLN NEB SCH ×3 (00:36→12:19)
[2017-06-13] MEDS: IPRATROPIUM BROM 0.5 MG/2.5ML INH SOL NEB SCH ×3 (00:36→12:19)
[2017-06-13] MEDS: MORPHINE SULFATE 4 MG/ML SYRG IV PRN ×2 (02:57→09:10)
[2017-06-13 05:00] VITALS: BP 140/102
[2017-06-13] MEDS ORDERED: IPRATROPIUM BROM 0.5 MG/2.5ML INH SOL ONE (05:44)
[2017-06-13] MEDS ORDERED: BUDESONIDE (INHALATION) 0.5 MG/2 ML NEB ONE (05:44)
[2017-06-13] MEDS ORDERED: ALBUTEROL SULF 2.5 MG/0.5ML(0.5%) NEB SOLN ONE (05:44)
[2017-06-13 06:02] LABS: Albumin 3.2 g/dL (3.4-5.0); Calcium 8.2 mg/dL (8.5-10.1); Potassium 3.9 mmol/L (3.5-5.1)
[2017-06-13] MEDS: FUROSEMIDE 40 MG TAB PO SCH (06:02)
[2017-06-13 06:05] LABS: BUN/Creatinine Ratio 13.2
[2017-06-13 06:08] LABS: INR 1.26 (0.9-1.15); Partial Thromboplastin Time 30.6 sec (22.64-33.71)
[2017-06-13 06:09] LABS: Prothrombin Time 13.8 sec (9.37-12.3)
[2017-06-13 06:18] LABS: Bilirubin, Total 0.6 mg/dL (0.2-1.0); Total Protein 6.5 g/dL (6.4-8.2)
[2017-06-13] MEDS: ACCU-CHEK COMFORT CURVE STRIP VI SCH ×2 (06:21→11:33)
[2017-06-13] MEDS: InsuLIN REG 1unit/0.01ml Soln (100units/ml) SC SCH ×2 (06:21→11:30)
[2017-06-13] MEDS: BUDESONIDE (INHALATION) 0.5 MG/2 ML NEB NEB SCH (06:48)
[2017-06-13 08:00] VITALS: BP 134/90
[2017-06-13 09:13] VITALS: BP 134/90
[2017-06-13] MEDS: ASPirin-EC 81 mg tab PO SCH (10:12)
[2017-06-13] MEDS: ENOXAPARIN SOD 100 MG/1 ML SYRINGE SC SCH (10:12)
[2017-06-13] MEDS: PANTOPRAZOLE 40 MG TAB PO SCH (10:12)
[2017-06-13] MEDS: POTASSIUM CHL 20 Meq TABLET PO SCH (10:13)
[2017-06-13] MEDS: DIGOXIN 0.125 MG TAB PO SCH (10:13)
[2017-06-13] MEDS: CHOLECALCIFEROL (VITD3) 1,000 UNIT TAB PO SCH (10:13)
[2017-06-13] MEDS: CARVEDILOL 3.125 MG TAB PO SCH (10:15)
[2017-06-13] MEDS: SPIRONOLACTONE 25 MG TAB PO SCH (10:15)
[2017-06-13] MEDS: LISINOPRIL 20 MG TAB PO SCH (10:16)
[2017-06-13] MEDS: NITROGLYCERIN 0.2MG/HR TOPICAL PATCH TD SCH (10:17)
[2017-06-13] MEDS ORDERED: FUROSEMIDE 20 MG TAB PO ONE (11:00)
[2017-06-13] MEDS: HYDROcodone-ACET 5/325MG TAB PO PRN (12:23)
[2017-06-13 13:04] VITALS: BP 156/114
[2017-06-13 13:09] VITALS: BP_SYST 145; BP_SYST 146; BP_DIAS 114; BP_DIAS 98
[2017-06-13 17:00] VITALS: BP 133/83
[2017-06-13] MEDS ORDERED: WARFARIN SODIUM 2.5 MG TAB PO ONE (17:00)
[2017-06-13] MEDS ORDERED: FUROSEMIDE 20 MG TAB PO SCH (18:00)
== END 2017-06-13 18:54 | disposition home or self-care (01) | DRG 161 ==
LOC: EDBD 22:56 → ER 22:56 → TELE 22:57 → TELE-WESTW 06-10 18:30
PROVIDERS: ADMIT Internal Medicine; ATTEND Internal Medicine
PROC: 0JH609Z Insertion of Cardiac Resynchronization Defibrillator Pulse Generator into Chest Subcutaneous Tissue and Fascia, Open Approach (ICD-10-PCS; principal; 2017-06-13)
PROC: 02HL0KZ Insertion of Defibrillator Lead into Left Ventricle, Open Approach (ICD-10-PCS; 2017-06-13)
PROC: 02H60KZ Insertion of Defibrillator Lead into Right Atrium, Open Approach (ICD-10-PCS; 2017-06-13)
PROC: 02HK0KZ Insertion of Defibrillator Lead into Right Ventricle, Open Approach (ICD-10-PCS; 2017-06-13)
DX: I42.0 Dilated cardiomyopathy (principal); I11.0 Hypertensive heart disease with heart failure; I50.9 Heart failure, unspecified; I48.92 Unspecified atrial flutter; I48.2 Chronic atrial fibrillation; E87.6 Hypokalemia; E11.9 Type 2 diabetes mellitus without complications; E78.5 Hyperlipidemia, unspecified; I25.10 Atherosclerotic heart disease of native coronary artery without angina pectoris; Z86.711 Personal history of pulmonary embolism; Z87.891 Personal history of nicotine dependence; J44.9 Chronic obstructive pulmonary disease, unspecified
CPT/HCPCS: 36415; 71010; 80053; 80061; 80307; 82550; 82962; 83036; 83735; 83880; 84484; 85025; 85379; 85610; 85652; 85730; 86141; 87081; 93005; 94640; 96360; 96361; 99152; 99291; J0690; J2250; J3480